=== PATIENT | female | born 1970 | race Caucasian/White ===

== ENCOUNTER 2020-04-10 11:58 | Outpatient (REF) | payer OTHER, SELFPAY ==
--- NOTE | 2020-04-10 12:11 | MM_ITS ---
EXAMINATION: MM DIAGNOSTIC DIGITAL TOMOSYNTHESIS, BILATERAL US BREAST, BILATERAL CLINICAL INFORMATION: Left breast lump. The lifetime risk of breast cancer based on the Tyrer-Cuzick Model is 7.5%. COMPARISON: Mammography: None TECHNIQUE: Digital breast tomosynthesis is performed in both the craniocaudal and mediolateral oblique views along with computer-aided detection (CAD). Synthesized 2D images are generated from the tomosynthesis. Additional spot compression views of the right breast in craniocaudal and mediolateral oblique projections performed. Bilateral targeted breast ultrasound. FINDINGS: The breasts are heterogeneously dense, which may obscure small masses (ACR BI-RADS breast composition category C). There is an asymmetric density seen within the deep superior right breast which may represent asymmetric breast parenchyma. Spot compression views demonstrate persistence of the density without calcifications. No mammographic abnormality is seen in region of palpable abnormality anterior left breast. No other abnormal dominant mass or grouping of suspicious calcifications identified. Ultrasound examination of the deep superior aspect of the right breast does not demonstrate any abnormal cystic or solid mass. No region of abnormal distal sound shadowing is seen. There is an island of what appears to be breast tissue in the deep superior aspect likely corresponding to asymmetric glandular tissue. Ultrasound examination of the palpable abnormality in the left breast demonstrates a 9 x 8 mm well-circumscribed hyperechoic structure containing an approximately 2 mm region which is hypoechoic in its center with this region demonstrating distal sound enhancement. No distal sound shadowing is appreciated. No internal vascularity is seen. This has the appearance of fat necrosis. Six-month followup left breast ultrasound is recommended for follow up. Results are discussed with the patient at time of visit. MM/MM tomosynthesis diagnostic BI IMPRESSION: Asymmetric focus of breast tissue within the deep superior aspect of the right breast. Probable region of fat necrosis corresponding to palpable abnormality of the left breast. Six-month followup ultrasound is recommended. ASSESSMENT: BI-RADS 3: Probably benign. RECOMMENDATION: Diagnostic left breast ultrasound in 6 months. This patient's information was entered into a reminder system with a target due date for their next mammogram.
== END 2020-04-10 11:59 | disposition home or self-care (01) ==
LOC: HO.MAMMO 11:58
PROVIDERS: PCP Nurse Practitioner Family; Visit Provider Nurse Practitioner Family
DX: N64.9 Disorder of breast, unspecified (principal)
CPT/HCPCS: 76642; 77062; 77066

== ENCOUNTER 2022-08-23 15:28 | Emergency (ER) | payer OTHER, SELFPAY ==
--- NOTE | ~2022-08-23 | XR_ITS ---
EXAMINATION: XR CHEST CLINICAL INFORMATION: EtOH, weakness COMPARISON: None available. TECHNIQUE: Frontal view of the chest was obtained. FINDINGS: The cardiomediastinal silhouette is within normal limits. The lungs are well expanded. There is no focal consolidation, edema, or effusion. No pneumothorax. No acute osseous abnormality. XR/XR chest 1V IMPRESSION: No evidence of acute pulmonary process.
[2022-08-23 15:51] VITALS: BP 138/93; PULSE 109; RESP 19; TEMP 36.6; O2SAT 97; BMI 19.1
--- NOTE | 2022-08-23 15:51 | ECG_ITS ---
Test Reason : DIZZYNESS Blood Pressure : / mmHG Vent. Rate : 107 BPM Atrial Rate : 107 BPM P-R Int : 162 ms QRS Dur : 082 ms QT Int : 348 ms P-R-T Axes : 070 064 065 degrees QTc Int : 464 ms Sinus tachycardia Cannot rule out Inferior infarct , age undetermined Anterior infarct , age undetermined Abnormal ECG No previous ECGs available Referred By: Kecia Vivar Electronically Signed By:MARYBEL DELGADILLO MD
--- NOTE | 2022-08-23 15:52 | ED_ITS ---
HPI - General Adult General Chief complaint: General Medical <CHANDLER Muniz - Last Filed: 08/23/22 15:58> Stated complaint: Dizziness <CHANDLER Muniz - Last Filed: 08/23/22 15:58> Time Seen by Provider: 08/23/22 16:43 <CHANDLER Muniz - Last Filed: 08/23/22 15:58> Source: patient <Bárbara Santoro NP - Last Filed: 08/24/22 00:16> Mode of arrival: ambulatory <Bárbara Santoro NP - Last Filed: 08/24/22 00:16> Limitations: no limitations <Bárbara Santoro NP - Last Filed: 08/24/22 00:16> History of Present Illness HPI narrative: 51-year-old female presents with nausea, vomiting, diarrhea for past 3 weeks, and has been drinking alcohol in excess for several years. Patient states that she stopped drinking alcohol because of the nausea and vomiting yesterday. Patient is interested in detox. <Bárbara Santoro NP - Last Filed: 08/24/22 00:16> Onset (ago): week(s) (3) <Bárbara Santoro NP - Last Filed: 08/24/22 00:16> Location: abdomen <Bárbara Santoro NP - Last Filed: 08/24/22 00:16> Radiation: non-radiation <Bárbara Santoro NP - Last Filed: 08/24/22 00:16> Severity: moderate <Bárbara Santoro NP - Last Filed: 08/24/22 00:16> Severity scale (1-10): 5 <Bárbara Santoro NP - Last Filed: 08/24/22 00:16> Quality: aching <Bárbara Santoro NP - Last Filed: 08/24/22 00:16> Pain Consistency: constant <Bárbara Santoro NP - Last Filed: 08/24/22 00:16> Relieving factors: none <Bárbara Santoro NP - Last Filed: 08/24/22 00:16> Exacerbating factors: none <Bárbara Santoro NP - Last Filed: 08/24/22 00:16> Associated symptoms: nausea/vomiting <Bárbara Santoro NP - Last Filed: 08/24/22 00:16> Related Data Home medications: Previous Rx's Medication Instructions Recorded trazodone 100 mg tablet 100 mg PO BEDTIME #30 tabs 06/11/20 dextroamphetamine-amphetamine 30 30 mg PO BID add 30 days #60 tabs 07/27/20 mg tablet (Adderall) <CHANDLER Muniz - Last Filed: 08/23/22 15:58> Allergies/adverse reactions: Allergies Allergy/AdvReac Type Severity Reaction Status Date / Time No Known Allergies Allergy Verified 08/23/22 15:51 <CHANDLER Muniz - Last Filed: 08/23/22 15:58> Review of Systems Review of Systems: Constitutional: No Fever, No Chills Cardiovascular: No Chest Pain, No SOB Respiratory: No Cough, No Dyspnea Gastrointestinal: Positive Nausea, positive Vomiting, positive Diarrhea, positi ve abdominal Pain Genitourinary: No Dysuria, No Hematuria Musculoskeletal: No joint pain, No Myalgias, No Joint Swelling Skin: No Skin lacerations, No rash Neuro: No Weakness, No Numbness, No Paresthesias, No Loss of Consciousness, No Dizziness, No Headache <Bárbara Santoro NP - Last Filed: 08/24/22 00:16> Yes all other systems are reviewed and are negative <Bárbara Santoro NP - Last Filed: 08/24/22 00:16> PMFSH Past Medical History Attestation statement: The following information was validated with the patient. <Bárbara Santoro NP - Last Filed: 08/24/22 00:16> Source: old records reviewed <Bárbara Santoro NP - Last Filed: 08/24/22 00:16> Medical History: Medical History ADD (attention deficit disorder) Anemia Migraine <CHANDLER Muniz - Last Filed: 08/23/22 15:58> Surgical History: Surgical History No pertinent past surgical history <CHANDLER Muniz - Last Filed: 08/23/22 15:58> Family History Family History: Family History Father Diabetes Stroke Mother Diabetes Cancer HTN (hypertension) <CHANDLER Muniz - Last Filed: 08/23/22 15:58> Social History Social History: Social History Alcohol intake: current Alcohol intake frequency: a few times a month Cigarettes Per Day: 10 Advance Directives: No Advance Directives Information Provided: No <CHANDLER Muniz - Last Filed: 08/23/22 15:58> Physical Exam ED Vital Signs: Vital Signs - 24 hr 08/23/22 15:51 08/23/22 20:32 Temperature 98 F 97.5 F Pulse Rate 109 H 90 Respiratory Rate 19 17 Blood Pressure 138/93 H 129/89 Pulse Oximetry 97 96 Oxygen Delivery Method Room Air Room Air BMI result Body Mass Index 19.1 <CHANDLER Muniz - Last Filed: 08/23/22 15:58> Vital Signs - 24 hr 08/23/22 15:51 08/23/22 20:32 Temperature 98 F 97.5 F Pulse Rate 109 H 90 Respiratory Rate 19 17 Blood Pressure 138/93 H 129/89 Pulse Oximetry 97 96 Oxygen Delivery Method Room Air Room Air BMI result Body Mass Index 19.1 <Bárbara Santoro NP - Last Filed: 08/24/22 00:16> Appearance: Alert. Oriented X3. No acute distress. Eyes: Pupils equal, round and reactive to light. ENT: Pharynx normal. Neck: Normal inspection. Neck supple. CVS: Normal heart rate and rhythm. Pulses normal. Respiratory: No respiratory distress. Breath sounds normal. Abdomen: Soft and nontender. No distention or rigidity. Skin: Skin warm and dry. Normal skin color. Normal skin turgor. Extremities: No lower extremity edema. Moves all extremities against resistance. Gait well-balanced well coordinated. Neuro: No motor deficit. No sensory deficit. Cranial nerves 2-12 intact. <Bárbara Santoro NP - Last Filed: 08/24/22 00:16> Course Course Course Narrative: This is an RME: Additional HPI, ROS, PE not included below will be deferred to primary provider. A 51-year-old female presents with nausea, vomiting, shakiness, fatigue, malaise, double vision, dizziness, headache (diffuse) disoriented ( however a&o X4), body aches and pains x2 days. Patient reports she is a current daily drinking last drink was last night. Typically drinks 10 nips of fireball a day. No hx of alcohol w/drawls. CIWA score of 9 PE w/ UE tremors, tachycardia, lungs clear. neuro nonfocal. NIHSS 0. Normal cerebellar function. Plan- labs, ethanol, viral test, ativan, CIWA Q4, orthostatic vitals I do not suspect stroke or posterior stroke <CHANDLER Muniz - Last Filed: 08/23/22 15:58> This is an RME: Additional HPI, ROS, PE not included below will be deferr ed to primary provider. A 51-year-old female presents with nausea, vomiting, shakiness, fatigue, malaise, double vision, dizziness, headache (diffuse) disoriented ( however a&o X4), body aches and pains x2 days. Patient reports she is a current daily drinking last drink was last night. Typically drinks 10 nips of fireball a day. No hx of alcohol w/drawls. CIWA score of 9 PE w/ UE tremors, tachycardia, lungs clear. neuro nonfocal. NIHSS 0. Normal cerebellar function. Plan- labs, ethanol, viral test, ativan, CIWA Q4, orthostatic vitals I do not suspect stroke or posterior stroke 51-year-old female presents for nausea, vomiting, diarrhea, abdominal pain, and would like alcohol detox. Patient states that she drinks at least 20 nips per day and has been doing so for the past several years. Patient's sister accompanies her at bedside. Patient appears to be hesitant to answer questions regarding her willingness to attend detox. Patient does not report suicidal or homicidal ideation. Does not report auditory or visual hallucinations. Will add additional values of lactic acid, magnesium, acetone. Patient's physical exam is unremarkable. Abdomen is soft nontender. Negative rebound or rigidity. No hepatosplenomegaly palpated. 17:40 lactic acid 3.2, most likely lactic acidosis from alcoholism. White count 7.1, gap 21, BUN 22. ETOH 269. IV fluids are still pending. RN updated. Patient is asking to smoke. Going to the restroom often. Patient does have a nicotine patch in place. 20:49 2nd ETOH 222, will have chief engineer drilling and recovery discussed options with this pa tient. It was noted that this patient had a sleeve of nips in her purse and was drinking in the bathroom of the emergency department. Patient states that she wants to leave against medical advice, chief engineer drilling and recovery was still working with her at this time, patient changed her story several times, told this PHARMACY RESOURCE TECH that she was trying to leave because her ride was outside, then stated in front of this PHARMACY RESOURCE TECH and a chief engineer drilling and recovery that she was just taking a walk. Multiple discussions with this patient, patient agrees the detox is the best for her, we will continue bed search. 22:00 patient smoking in the bathroom. Discharged against medical advice. <Bárbara Santoro PHARMACY RESOURCE TECH - Last Filed: 08/24/22 00:16> Medications Administered Discontinued Medications Generic Name Dose Route Start Last Admin Trade Name Freq PRN Reason Stop Dose Admin Lorazepam 2 mg 08/23/22 15:56 08/23/22 17:07 Lorazepam 1 Mg Tablet PO 08/23/22 15:57 2 mg ONCE ONE Administration Lorazepam 1 mg 08/23/22 16:56 08/23/22 17:08 Lorazepam 2 Mg/Ml Vial IVPUSH 08/23/22 16:57 1 mg STAT STA Administration Nicotine 21 mg 08/23/22 20:54 08/23/22 21:05 Nicotine 21 Mg Patch.Td24 TRANSDERMA 08/23/22 20:55 21 mg ONCE ONE Administration <Kecia Vivar PA - Last Filed: 08/23/22 15:58> Medications Administered Discontinued Medications Generic Name Dose Route Start Last Admin Trade Name Freq PRN Reason Stop Dose Admin Lorazepam 2 mg 08/23/22 15:56 08/23/22 17:07 Lorazepam 1 Mg Tablet PO 08/23/22 15:57 2 mg ONCE ONE Administration Lorazepam 1 mg 08/23/22 16:56 08/23/22 17:08 Lorazepam 2 Mg/Ml Vial IVPUSH 08/23/22 16:57 1 mg STAT STA Administration Nicotine 21 mg 08/23/22 20:54 08/23/22 21:05 Nicotine 21 Mg Patch.Td24 TRANSDERMA 08/23/22 20:55 21 mg ONCE ONE Administration <Bárbara Santoro NP - Last Filed: 08/24/22 00:16> Medical Decision Making Differential Diagnosis Differential Diagnoses: The differential diagnosis associated with the presentation includes <Bárbara Santoro NP - Last Filed: 08/24/22 00:16> Alcohol withdrawal, alcohol ketoacidosis, metabolic encephalopathy, viral gastroenteritis, pancreatitis <Bárbara Santoro NP - Last Filed: 08/24/22 00:16> Admission/Observation Consideration of admission/observation: Escalation of care including admission/observation considered <Bárbara Santoro NP - Last Filed: 08/24/22 00:16> If patient's lab values indicate pancreatitis or other acute findings will admit, will also consider admission for alcohol withdrawal <Bárbara Santoro NP - Last Filed: 08/24/22 00:16> Lab Data MDM Lab Attestation statement: I reviewed the patient's lab results. <Bárbara Santoro NP - Last Filed: 08/24/22 00:16> Result Diagrams: 08/23/22 16:11 08/23/22 16:11 <CHANDLER Muniz - Last Filed: 08/23/22 15:58> Labs: Lab Results 08/23/22 08/23/22 08/23/22 Range/Units 16:11 16:11 16:11 WBC 7.1 (4.8-10.8) X10*3/uL RBC 3.65 L (4.20-5.50) X10*6/uL Hgb 12.1 (12.0-16.0) g/dl Hct 34.3 L (37.0-47.0) % MCV 94.0 (80.0-98.0) fL MCH 33.2 H (27.0-33.0) pg MCHC 35.3 H (31.0-35.0) g/dl RDW 22.4 H (11.0-16.0) % Plt Count 277 (160-400) X10*3/uL MPV 9.0 L (9.4-12.3) fL Immature Gran % (Auto) 0.3 (0.0-0.4) % Neut % (Auto) 60.3 (45-73) % Lymph % (Auto) 31.7 (20-40) % [place] % (Auto) 4.9 (2-11) % Eos % (Auto) 1.0 (0-4) % Baso % (Auto) 1.8 (0-2) % Lymph # (Auto) 2.3 (1.2-4.9) X10*3/uL [place] # (Auto) 0.4 (0.1-1.2) X10*3/uL Eos # (Auto) 0.1 (0.0-0.4) X10*3/uL Baso # (Auto) 0.1 (0.0-0.2) X10*3/uL Abs Immat Gran (auto) 0.02 (0.00-0.03) X10*3/uL Absolute Neuts (auto) 4.3 (2.0-8.3) x10*3/uL Absolute Nucleated RBC 0.000 (0.0-0.012) X10*3/uL Nucleated RBC % (auto) 0.0 (0.0-0.2) /100WBC PT (10.0-13.1) SEC INR (0.9-1.1) APTT (26.0-36.4) SEC Sodium 143 (135-145) mmol/L Potassium 3.5 (3.3-5.1) mmol/L Chloride 104 (96-108) mmol/L Carbon Dioxide 22 (22-29) mmol/L Anion Gap 21 H (12-20) BUN 22 H (9-16) mg/dL Creatinine 0.78 (0.5-1.4) mg/dL Estim Creat Clear Calc 69.4 Estimated GFR > 60 Random Glucose 107 (60-115) mg/dL Lactic Acid (0.5-2.0) mmol/L Lactic Acid F/U @ 2Hr (0.5-2.0) mmol/L Calcium 8.9 (8.4-10.2) mg/dL Phosphorus (2.7-4.5) mg/dL Magnesium 1.9 (1.6-2.6) mg/dL Total Bilirubin 1.4 H (0.0-1.0) mg/dL AST 67 H (5-31) U/L ALT 34 H (0-31) U/L Alkaline Phosphatase 110 (39-117) U/L Troponin I High Sens (<3.5-17.0) ng/L Total Protein 6.9 (6.5-8.0) g/dL Albumin 4.1 (3.5-5.0) g/dL Lipase 23 (8-78) U/L Ethyl Alcohol 269 mg/dL Acetone, Qual (Negative) COVID-19 (PETE) (Negative) COVID-19 Clin Com Influenza Type A (PARIS) Negative (Negative) Influenza Type B (PARIS) Negative (Negative) Influenza A & B Note See Note 08/23/22 08/23/22 08/23/22 Range/Units 16:11 17:17 17:17 WBC (4.8-10.8) X10*3/uL RBC (4.20-5.50) X10*6/uL Hgb (12.0-16.0) g/dl Hct (37.0-47.0) % MCV (80.0-98.0) fL MCH (27.0-33.0) pg MCHC (31.0-35.0) g/dl RDW (11.0-16.0) % Plt Count (160-400) X10*3/uL MPV (9.4-12.3) fL Immature Gran % (Auto) (0.0-0.4) % Neut % (Auto) (45-73) % Lymph % (Auto) (20-40) % [place] % (Auto) (2-11) % Eos % (Auto) (0-4) % Baso % (Auto) (0-2) % Lymph # (Auto) (1.2-4.9) X10*3/uL [place] # (Auto) (0.1-1.2) X10*3/uL Eos # (Auto) (0.0-0.4) X10*3/uL Baso # (Auto) (0.0-0.2) X10*3/uL Abs Immat Gran (auto) (0.00-0.03) X10*3/uL Absolute Neuts (auto) (2.0-8.3) x10*3/uL Absolute Nucleated RBC (0.0-0.012) X10*3/uL Nucleated RBC % (auto) (0.0-0.2) /100WBC PT (10.0-13.1) SEC INR (0.9-1.1) APTT 27.2 (26.0-36.4) SEC Sodium (135-145) mmol/L Potassium (3.3-5.1) mmol/L Chloride (96-108) mmol/L Carbon Dioxide (22-29) mmol/L Anion Gap (12-20) BUN (9-16) mg/dL Creatinine (0.5-1.4) mg/dL Estim Creat Clear Calc Estimated GFR Random Glucose (60-115) mg/dL Lactic Acid 3.2 H* (0.5-2.0) mmol/L Lactic Acid F/U @ 2Hr (0.5-2.0) mmol/L Calcium (8.4-10.2) mg/dL Phosphorus (2.7-4.5) mg/dL Magnesium (1.6-2.6) mg/dL Total Bilirubin (0.0-1.0) mg/dL AST (5-31) U/L ALT (0-31) U/L Alkaline Phosphatase (39-117) U/L Troponin I High Sens (<3.5-17.0) ng/L Total Protein (6.5-8.0) g/dL Albumin (3.5-5.0) g/dL Lipase (8-78) U/L Ethyl Alcohol mg/dL Acetone, Qual (Negative) COVID-19 (PETE) Negative (Negative) COVID-19 Clin Com See Note Influenza Type A (PARIS) (Negative) Influenza Type B (PARIS) (Negative) Influenza A & B Note 08/23/22 08/23/22 08/23/22 Range/Units 17:17 17:17 17:17 WBC (4.8-10.8) X10*3/uL RBC (4.20-5.50) X10*6/uL Hgb (12.0-16.0) g/dl Hct (37.0-47.0) % MCV (80.0-98.0) fL MCH (27.0-33.0) pg MCHC (31.0-35.0) g/dl RDW (11.0-16.0) % Plt Count (160-400) X10*3/uL MPV (9.4-12.3) fL Immature Gran % (Auto) (0.0-0.4) % Neut % (Auto) (45-73) % Lymph % (Auto) (20-40) % [place] % (Auto) (2-11) % Eos % (Auto) (0-4) % Baso % (Auto) (0-2) % Lymph # (Auto) (1.2-4.9) X10*3/uL [place] # (Auto) (0.1-1.2) X10*3/uL Eos # (Auto) (0.0-0.4) X10*3/uL Baso # (Auto) (0.0-0.2) X10*3/uL Abs Immat Gran (auto) (0.00-0.03) X10*3/uL Absolute Neuts (auto) (2.0-8.3) x10*3/uL Absolute Nucleated RBC (0.0-0.012) X10*3/uL Nucleated RBC % (auto) (0.0-0.2) /100WBC PT 13.8 H (10.0-13.1) SEC INR 1.2 H (0.9-1.1) APTT (26.0-36.4) SEC Sodium (135-145) mmol/L Potassium (3.3-5.1) mmol/L Chloride (96-108) mmol/L Carbon Dioxide (22-29) mmol/L Anion Gap (12-20) BUN (9-16) mg/dL Creatinine (0.5-1.4) mg/dL Estim Creat Clear Calc Estimated GFR Random Glucose (60-115) mg/dL Lactic Acid (0.5-2.0) mmol/L Lactic Acid F/U @ 2Hr (0.5-2.0) mmol/L Calcium (8.4-10.2) mg/dL Phosphorus 4.3 (2.7-4.5) mg/dL Magnesium 1.8 (1.6-2.6) mg/dL Total Bilirubin (0.0-1.0) mg/dL AST (5-31) U/L ALT (0-31) U/L Alkaline Phosphatase (39-117) U/L Troponin I High Sens < 3.5 (<3.5-17.0) ng/L Total Protein (6.5-8.0) g/dL Albumin (3.5-5.0) g/dL Lipase (8-78) U/L Ethyl Alcohol mg/dL Acetone, Qual Negative (Negative) COVID-19 (PETE) (Negative) COVID-19 Clin Com Influenza Type A (PARIS) (Negative) Influenza Type B (PARIS) (Negative) Influenza A & B Note 08/23/22 08/23/22 Range/Units 20:11 20:11 WBC (4.8-10.8) X10*3/uL RBC (4.20-5.50) X10*6/uL Hgb (12.0-16.0) g/dl Hct (37.0-47.0) % MCV (80.0-98.0) fL MCH (27.0-33.0) pg MCHC (31.0-35.0) g/dl RDW (11.0-16.0) % Plt Count (160-400) X10*3/uL MPV (9.4-12.3) fL Immature Gran % (Auto) (0.0-0.4) % Neut % (Auto) (45-73) % Lymph % (Auto) (20-40) % [place] % (Auto) (2-11) % Eos % (Auto) (0-4) % Baso % (Auto) (0-2) % Lymph # (Auto) (1.2-4.9) X10*3/uL [place] # (Auto) (0.1-1.2) X10*3/uL Eos # (Auto) (0.0-0.4) X10*3/uL Baso # (Auto) (0.0-0.2) X10*3/uL Abs Immat Gran (auto) (0.00-0.03) X10*3/uL Absolute Neuts (auto) (2.0-8.3) x10*3/uL Absolute Nucleated RBC (0.0-0.012) X10*3/uL Nucleated RBC % (auto) (0.0-0.2) /100WBC PT (10.0-13.1) SEC INR (0.9-1.1) APTT (26.0-36.4) SEC Sodium (135-145) mmol/L Potassium (3.3-5.1) mmol/L Chloride (96-108) mmol/L Carbon Dioxide (22-29) mmol/L Anion Gap (12-20) BUN (9-16) mg/dL Creatinine (0.5-1.4) mg/dL Estim Creat Clear Calc Estimated GFR Random Glucose (60-115) mg/dL Lactic Acid (0.5-2.0) mmol/L Lactic Acid F/U @ 2Hr 3.5 H* (0.5-2.0) mmol/L Calcium (8.4-10.2) mg/dL Phosphorus (2.7-4.5) mg/dL Magnesium (1.6-2.6) mg/dL Total Bilirubin (0.0-1.0) mg/dL AST (5-31) U/L ALT (0-31) U/L Alkaline Phosphatase (39-117) U/L Troponin I High Sens (<3.5-17.0) ng/L Total Protein (6.5-8.0) g/dL Albumin (3.5-5.0) g/dL Lipase (8-78) U/L Ethyl Alcohol 222 mg/dL Acetone, Qual (Negative) COVID-19 (PETE) (Negative) COVID-19 Clin Com Influenza Type A (PARIS) (Negative) Influenza Type B (PARIS) (Negative) Influenza A & B Note <CHANDLER Muniz - Last Filed: 08/23/22 15:58> Lab Results 08/23/22 08/23/22 08/23/22 Range/Units 16:11 16:11 16:11 WBC 7.1 (4.8-10.8) X10*3/uL RBC 3.65 L (4.20-5.50) X10*6/uL Hgb 12.1 (12.0-16.0) g/dl Hct 34.3 L (37.0-47.0) % MCV 94.0 (80.0-98.0) fL MCH 33.2 H (27.0-33.0) pg MCHC 35.3 H (31.0-35.0) g/dl RDW 22.4 H (11.0-16.0) % Plt Count 277 (160-400) X10*3/uL MPV 9.0 L (9.4-12.3) fL Immature Gran % (Auto) 0.3 (0.0-0.4) % Neut % (Auto) 60.3 (45-73) % Lymph % (Auto) 31.7 (20-40) % [place] % (Auto) 4.9 (2-11) % Eos % (Auto) 1.0 (0-4) % Baso % (Auto) 1.8 (0-2) % Lymph # (Auto) 2.3 (1.2-4.9) X10*3/uL [place] # (Auto) 0.4 (0.1-1.2) X10*3/uL Eos # (Auto) 0.1 (0.0-0.4) X10*3/uL Baso # (Auto) 0.1 (0.0-0.2) X10*3/uL Abs Immat Gran (auto) 0.02 (0.00-0.03) X10*3/uL Absolute Neuts (auto) 4.3 (2.0-8.3) x10*3/uL Absolute Nucleated RBC 0.000 (0.0-0.012) X10*3/uL Nucleated RBC % (auto) 0.0 (0.0-0.2) /100WBC PT (10.0-13.1) SEC INR (0.9-1.1) APTT (26.0-36.4) SEC Sodium 143 (135-145) mmol/L Potassium 3.5 (3.3-5.1) mmol/L Chloride 104 (96-108) mmol/L Carbon Dioxide 22 (22-29) mmol/L Anion Gap 21 H (12-20) BUN 22 H (9-16) mg/dL Creatinine 0.78 (0.5-1.4) mg/dL Estim Creat Clear Calc 69.4 Estimated GFR > 60 Random Glucose 107 (60-115) mg/dL Lactic Acid (0.5-2.0) mmol/L Lactic Acid F/U @ 2Hr (0.5-2.0) mmol/L Calcium 8.9 (8.4-10.2) mg/dL Phosphorus (2.7-4.5) mg/dL Magnesium 1.9 (1.6-2.6) mg/dL Total Bilirubin 1.4 H (0.0-1.0) mg/dL AST 67 H (5-31) U/L ALT 34 H (0-31) U/L Alkaline Phosphatase 110 (39-117) U/L Troponin I High Sens (<3.5-17.0) ng/L Total Protein 6.9 (6.5-8.0) g/dL Albumin 4.1 (3.5-5.0) g/dL Lipase 23 (8-78) U/L Ethyl Alcohol 269 mg/dL Acetone, Qual (Negative) COVID-19 (PETE) (Negative) COVID-19 Clin Com Influenza Type A (PARIS) Negative (Negative) Influenza Type B (PARIS) Negative (Negative) Influenza A & B Note See Note 08/23/22 08/23/22 08/23/22 Range/Units 16:11 17:17 17:17 WBC (4.8-10.8) X10*3/uL RBC (4.20-5.50) X10*6/uL Hgb (12.0-16.0) g/dl Hct (37.0-47.0) % MCV (80.0-98.0) fL MCH (27.0-33.0) pg MCHC (31.0-35.0) g/dl RDW (11.0-16.0) % Plt Count (160-400) X10*3/uL MPV (9.4-12.3) fL Immature Gran % (Auto) (0.0-0.4) % Neut % (Auto) (45-73) % Lymph % (Auto) (20-40) % [place] % (Auto) (2-11) % Eos % (Auto) (0-4) % Baso % (Auto) (0-2) % Lymph # (Auto) (1.2-4.9) X10*3/uL [place] # (Auto) (0.1-1.2) X10*3/uL Eos # (Auto) (0.0-0.4) X10*3/uL Baso # (Auto) (0.0-0.2) X10*3/uL Abs Immat Gran (auto) (0.00-0.03) X10*3/uL Absolute Neuts (auto) (2.0-8.3) x10*3/uL Absolute Nucleated RBC (0.0-0.012) X10*3/uL Nucleated RBC % (auto) (0.0-0.2) /100WBC PT (10.0-13.1) SEC INR (0.9-1.1) APTT 27.2 (26.0-36.4) SEC Sodium (135-145) mmol/L Potassium (3.3-5.1) mmol/L Chloride (96-108) mmol/L Carbon Dioxide (22-29) mmol/L Anion Gap (12-20) BUN (9-16) mg/dL Creatinine (0.5-1.4) mg/dL Estim Creat Clear Calc Estimated GFR Random Glucose (60-115) mg/dL Lactic Acid 3.2 H* (0.5-2.0) mmol/L Lactic Acid F/U @ 2Hr (0.5-2.0) mmol/L Calcium (8.4-10.2) mg/dL Phosphorus (2.7-4.5) mg/dL Magnesium (1.6-2.6) mg/dL Total Bilirubin (0.0-1.0) mg/dL AST (5-31) U/L ALT (0-31) U/L Alkaline Phosphatase (39-117) U/L Troponin I High Sens (<3.5-17.0) ng/L Total Protein (6.5-8.0) g/dL Albumin (3.5-5.0) g/dL Lipase (8-78) U/L Ethyl Alcohol mg/dL Acetone, Qual (Negative) COVID-19 (PETE) Negative (Negative) COVID-19 Clin Com See Note Influenza Type A (PARIS) (Negative) Influenza Type B (PARIS) (Negative) Influenza A & B Note 08/23/22 08/23/22 08/23/22 Range/Units 17:17 17:17 17:17 WBC (4.8-10.8) X10*3/uL RBC (4.20-5.50) X10*6/uL Hgb (12.0-16.0) g/dl Hct (37.0-47.0) % MCV (80.0-98.0) fL MCH (27.0-33.0) pg MCHC (31.0-35.0) g/dl RDW (11.0-16.0) % Plt Count (160-400) X10*3/uL MPV (9.4-12.3) fL Immature Gran % (Auto) (0.0-0.4) % Neut % (Auto) (45-73) % Lymph % (Auto) (20-40) % [place] % (Auto) (2-11) % Eos % (Auto) (0-4) % Baso % (Auto) (0-2) % Lymph # (Auto) (1.2-4.9) X10*3/uL [place] # (Auto) (0.1-1.2) X10*3/uL Eos # (Auto) (0.0-0.4) X10*3/uL Baso # (Auto) (0.0-0.2) X10*3/uL Abs Immat Gran (auto) (0.00-0.03) X10*3/uL Absolute Neuts (auto) (2.0-8.3) x10*3/uL Absolute Nucleated RBC (0.0-0.012) X10*3/uL Nucleated RBC % (auto) (0.0-0.2) /100WBC PT 13.8 H (10.0-13.1) SEC INR 1.2 H (0.9-1.1) APTT (26.0-36.4) SEC Sodium (135-145) mmol/L Potassium (3.3-5.1) mmol/L Chloride (96-108) mmol/L Carbon Dioxide (22-29) mmol/L Anion Gap (12-20) BUN (9-16) mg/dL Creatinine (0.5-1.4) mg/dL Estim Creat Clear Calc Estimated GFR Random Glucose (60-115) mg/dL Lactic Acid (0.5-2.0) mmol/L Lactic Acid F/U @ 2Hr (0.5-2.0) mmol/L Calcium (8.4-10.2) mg/dL Phosphorus 4.3 (2.7-4.5) mg/dL Magnesium 1.8 (1.6-2.6) mg/dL Total Bilirubin (0.0-1.0) mg/dL AST (5-31) U/L ALT (0-31) U/L Alkaline Phosphatase (39-117) U/L Troponin I High Sens < 3.5 (<3.5-17.0) ng/L Total Protein (6.5-8.0) g/dL Albumin (3.5-5.0) g/dL Lipase (8-78) U/L Ethyl Alcohol mg/dL Acetone, Qual Negative (Negative) COVID-19 (PETE) (Negative) COVID-19 Clin Com Influenza Type A (PARIS) (Negative) Influenza Type B (PARIS) (Negative) Influenza A & B Note 08/23/22 08/23/22 Range/Units 20:11 20:11 WBC (4.8-10.8) X10*3/uL RBC (4.20-5.50) X10*6/uL Hgb (12.0-16.0) g/dl Hct (37.0-47.0) % MCV (80.0-98.0) fL MCH (27.0-33.0) pg MCHC (31.0-35.0) g/dl RDW (11.0-16.0) % Plt Count (160-400) X10*3/uL MPV (9.4-12.3) fL Immature Gran % (Auto) (0.0-0.4) % Neut % (Auto) (45-73) % Lymph % (Auto) (20-40) % [place] % (Auto) (2-11) % Eos % (Auto) (0-4) % Baso % (Auto) (0-2) % Lymph # (Auto) (1.2-4.9) X10*3/uL [place] # (Auto) (0.1-1.2) X10*3/uL Eos # (Auto) (0.0-0.4) X10*3/uL Baso # (Auto) (0.0-0.2) X10*3/uL Abs Immat Gran (auto) (0.00-0.03) X10*3/uL Absolute Neuts (auto) (2.0-8.3) x10*3/uL Absolute Nucleated RBC (0.0-0.012) X10*3/uL Nucleated RBC % (auto) (0.0-0.2) /100WBC PT (10.0-13.1) SEC INR (0.9-1.1) APTT (26.0-36.4) SEC Sodium (135-145) mmol/L Potassium (3.3-5.1) mmol/L Chloride (96-108) mmol/L Carbon Dioxide (22-29) mmol/L Anion Gap (12-20) BUN (9-16) mg/dL Creatinine (0.5-1.4) mg/dL Estim Creat Clear Calc Estimated GFR Random Glucose (60-115) mg/dL Lactic Acid (0.5-2.0) mmol/L Lactic Acid F/U @ 2Hr 3.5 H* (0.5-2.0) mmol/L Calcium (8.4-10.2) mg/dL Phosphorus (2.7-4.5) mg/dL Magnesium (1.6-2.6) mg/dL Total Bilirubin (0.0-1.0) mg/dL AST (5-31) U/L ALT (0-31) U/L Alkaline Phosphatase (39-117) U/L Troponin I High Sens (<3.5-17.0) ng/L Total Protein (6.5-8.0) g/dL Albumin (3.5-5.0) g/dL Lipase (8-78) U/L Ethyl Alcohol 222 mg/dL Acetone, Qual (Negative) COVID-19 (PETE) (Negative) COVID-19 Clin Com Influenza Type A (PARIS) (Negative) Influenza Type B (PARIS) (Negative) Influenza A & B Note <Bárbara Santoro NP - Last Filed: 08/24/22 00:16> Independent Interpretation I performed an independent interpretation of an: EKG and Plain X-Ray <Bárbara Santoro NP - Last Filed: 08/24/22 00:16> Interpretation: Sinus tachycardia Cannot rule out Inferior infarct , age undetermined Ante rior infarct , age undetermined Abnormal ECG No previous ECGs available Vent. rate 107 BPM NC interval 162 ms QRS duration 82 ms QT/QTc 348/464 ms P-R-T axes 70 64 65 23-AUG-2022 16:01:45 <Bárbara Santoro NP - Last Filed: 08/24/22 00:16> Radiology Impression Discussion of test interpretation with radiology: I have reviewed the radiologist's reading. <Bárbara Santoro NP - Last Filed: 08/24/22 00:16> Radiologist Impression: EXAMINATION: XR CHEST CLINICAL INFORMATION: EtOH, weakness COMPARISON: None available. TECHNIQUE: Frontal view of the chest was obtained. FINDINGS: The cardiomediastinal silhouette is within normal limits. The lungs are well expanded. There is no focal consolidation, edema, or effusion. No pneumothorax. No acute osseous abnormality. XR/XR chest 1V IMPRESSION: No evidence of acute pulmonary process. <Bárbara Santoro NP - Last Filed: 0 08/24/22 00:16> Independent Historian Clinical information obtained from an independent historian. History obtained from or confirmed by: Other (Sister) <Bárbara Santoro NP - Last Filed: 08/24/22 00:16> External Record Review External record reviewed: Outpatient record <Bárbara Santoro NP - Last Filed: 08/24/22 00:16> No significant prior records for this patient at this facility <Bárbara Santoro NP - Last Filed: 08/24/22 00:16> Discharge Plan Discharge Clinical Impression: Alcoholism, Acidosis, lactic <CHANDLER Muniz - Last Filed: 08/23/22 15:58> Patient Disposition: Left Against Medical Advice <CHANDLER Muniz - Last Filed: 08/23/22 15:58> Instructions: Abuse of Alcohol (ED) <CHANDLER Muniz - Last Filed: 08/23/22 15:58> Additional Instructions: You were evaluated for nausea vomiting and abdominal pain with alcoholism. Your lactic acid is elevated due to your alcoholism. Please follow-up with detox. You are leaving against medical advice. You more than welcome to return at any time to complete your care. <CHANDLER Muniz - Last Filed: 08/23/22 15:58> Prescriptions: No Action trazodone 100 mg tablet 100 mg PO BEDTIME Qty: 30 3RF dextroamphetamine-amphetamine [Adderall] 30 mg tablet 30 mg PO BID 30 Days Qty: 60 0RF Rx Instructions: 1 tab in the am, .5 tab in afternoon <CHANDLER Muniz - Last Filed: 08/23/22 15:58> Stand Alone Forms: Against Medical Advice <CHANDLER Muniz - Last Filed: 08/23/22 15:58>
[2022-08-23 16:17] LABS: MANUAL DIFF FLAG NO
--- OUTSIDE RECORDS SUMMARY | 2022-08-23 16:23 | XMS_ITS | Continuity of Care Document ---
:1970 Author Organization [facility] Address [address] [place] [address]- Care Team Providers Name Role Phone Robi Cardona MD Primary Care Physician Encounter [facility] Date(s): 06/27/22 - 07/27/22 [facility] [address] [id number]- Attending Physician: Rosy Jaramillo Admitting Physician: Rosy Jaramillo Referring Physician: trRosy Allergies, Adverse Reactions, Alerts Substance Reaction Severity Status penicillin Active Medications MoviPrep oral powder for reconstitution 240 mL, By Mouth, Every 15 minutes, Dose #1 evening before colonoscopy and dose #2 is 6 hours beforecolonoscopy, # 1 each, 0 Refills, Maintenance, 05/01/22 17:00:00 EST, REC Powder, [facility]/pharmacy #[id number], test date 05/02/22, 240 mL By Mouth Every 15 min... Start Date: 05/01/22 Status: OrderedtraZODone 100 mg oral tablet 100 mg, 1, tablet, By Mouth, Daily at bedtime, # 30 tablet, Refills 1, Tot. Refills 1, Maintenance, 01/21/22 12:47:00 EDT, Route to Pharmacy Electronically, [facility]/pharmacy #[id number], Partial fill upon patient request if the prescription is for a schedule II... Start Date: 01/21/22 Stop Date: 03/22/22 Status: Ordered Problem List Condition Confirmation Course Effective Dates Status Health Stat us Informant GERD Confirmed Active (gastroesophageal reflux disease) MANJINDER (generalized Confirmed Active anxiety disorder) Insomnia Confirmed Active Colon cancer Confirmed Active screening Social History Social History Type Response Smoking Status 10 or more cigarettes (1/2 p ack or more)/day in last 30 days; Patient wants NRT during admission Yes; Other: 10 CIGARETTES A DAY; Started at age: 14; entered on: 12/23/21 Sex Patient Care team information Care Team PersonnelName: Robi Cardona MD Position: [facility] Primary Care Physician Member Role: PCP Address: Address: [address] [place] [address]- Care Team Related PersonsName: MAXIMILIANO CHRISTINE Address: home [address] [place] [id number] Name: SUBHASH CASANOVA
--- OUTSIDE RECORDS SUMMARY | 2022-08-23 16:23 | XMS_ITS | Continuity of Care Document ---
:1970 Author Organization [facility] Address [address] [place] [address]- Care Team Providers Name Role Phone Robi Cardona MD Primary Care Physician [facility] [facility] Date(s): 01/20/22 - 02/26/[address] [id number] Attending Physician: Robi Cardona MD Admitting Physician: Robi Cardona MD Referring Physician: Robi Cardona MD Allergies, Adverse Reactions, Alerts Substance Reaction Severity Status penicillin Active Medications MoviPrep oral powder for reconstitution 240 mL, By Mouth, Every 15 minutes, Dose #1 evening before colonoscopy and dose #2 is 6 hours beforecolonoscopy, # 1 each, 0 Refills, Maintenance, 05/01/22 17:00:00 EST, REC Powder, [facility]/pharmacy #[id number], test date 05/02/22, 240 mL By Mouth Every 15 min... Start Date: 05/01/22 Status: OrderedtraZODone 100 mg oral tablet 100 mg, 1, tablet, By Mouth, Daily at bedtime, # 30 tablet, Refills 1, Tot. Refills 1, Maintenance, 01/21/22 12:47:00 EDT, Route to Pharmacy Electronically, [facility]/pharmacy #[id number], Partial fill upon patient request if the prescription is for a schedule II... Start Date: 01/21/22 Stop Date: 03/22/22 Status: Ordered Problem List Condition Effective Dates Status Health Status Informant GERD (gastroesophageal reflux Active disease)(Confirmed) MANJINDER (generalized anxiety Active disorder)(Confirmed) Insomnia(Confirmed) Active Colon cancer screening(Confirmed) Active Social History Social History Type Response Smoking Status 10 or more cigarettes (1/2 p ack or more)/day in last 30 days; Patient wants NRT during admission Yes; Other: 10 CIGARETTES A DAY; Started at age: 14; entered on: 12/23/21 Sex Care Team PersonnelName: Robi Cardona MD Address: [address] [place] [address], [place], [place] [address]
--- OUTSIDE RECORDS SUMMARY | 2022-08-23 16:23 | XMS_ITS | Continuity of Care Document ---
:1970 Author Organization [facility] Address [address] [place] [address]- Care Team Providers Name Role Phone Robi Cardona MD Primary Care Physician Encounter [facility] Date(s): 01/24/22 - 02/23/22 [facility] [address] [place] [address]- [place] Allergies, Adverse Reactions, Alerts Substance Reaction Severity Status penicillin Active Medications MoviPrep oral powder for reconstitution 240 mL, By Mouth, Every 15 minutes, Dose #1 evening before colonoscopy and dose #2 is 6 hours beforecolonoscopy, # 1 each, 0 Refills, Maintenance, 05/01/22 17:00:00 EST, REC Powder, [facility]/pharmacy #[id number], test date 05/02/22, 240 mL By Mouth Every 15 min... Start Date: 05/01/22 Status: OrderedtraZODone 100 mg oral tablet 100 mg, 1, tablet, By Mouth, Daily at bedtime, # 30 tablet, Refills 1, Tot. Refills 1, Maintenance, 01/21/22 12:47:00 EDT, Route to Pharmacy Electronically, [facility]/pharmacy #[id number], Partial fill upon patient request if [...] Care Team PersonnelName: Robi Cardona MD Address: [address] [facility] [place] [address]- [place]
--- OUTSIDE RECORDS SUMMARY | 2022-08-23 16:23 | XMS_ITS | Continuity of Care Document ---
:1970 Author Organization [facility] Address [address] [place] [address]- Care Team Providers Name Role Phone Robi Cardona MD Primary Care Physician Encounter [facility] Date(s): 06/27/22 - 07/27/22 [facility] [address] [place] [address]- [place] Allergies, Adverse Reactions, Alerts Substance Reaction Severity Status penicillin Active Medications MoviPrep oral powder for reconstitution 240 mL, By Mouth, Every 15 minutes, Dose #1 evening before colonoscopy and dose #2 is 6 hours beforecolonoscopy, # 1 each, 0 Refills, Maintenance, 05/01/22 17:00:00 EST, REC Powder, [facility]/pharmacy #[id number], test date 05/02/22, 240 mL By Mouth Every 15 min... Start Date: 05/01/22 Status: OrderedtraZODone 100 mg oral tablet 100 mg, 1, tablet, By Mouth, Daily at bedtime, # 30 tablet, Refills 1, Tot. Refills 1, Maintenance, 01/21/22 12:47:00 EDT, Route to Pharmacy Electronically, [facility]/pharmacy #[id number], Partial fill upon patient request if [...] Care Team PersonnelName: Robi Cardona MD Position: [facility] Primary Care Physician Member Role: PCP Address: Address: [address] [place] [address] Medicine, [place] [address]- Care Team Related PersonsName: MAXIMILIANO CHRISTINE Address: home [address] [place] [address] Name: SUBHASH CASANOVA
--- OUTSIDE RECORDS SUMMARY | 2022-08-23 16:23 | XMS_ITS | Continuity of Care Document ---
:1970 Author Organization [facility] Address [address] [phone]- Care Team Providers Name Role Phone Robi Cardona MD Primary Care Physician Encounter [facility] Date(s): 05/16/22 - 07/27/22 [facility] [address] [place] [address]- Attending Physician: Robi Cardona MD Allergies, Adverse Reactions, [...] 01/21/22 12:47:00 EDT, Route to Pharmacy Electronically, [facility]/pharmacy #[id number], Partial fill upon patient request if [...] Care Team PersonnelName: Robi Cardona MD Position: [facility] Primary Care Physician Member Role: PCP Address: Address: [address] [facility], [place] [address]- Care Team Related PersonsName: MAXIMILIANO CHRISTINE Address: home [address] [place] [address] Name: SUBHASH CASANOVA
--- OUTSIDE RECORDS SUMMARY | 2022-08-23 16:23 | XMS_ITS | Continuity of Care Document ---
:1970 Author Organization [facility] Address [address] [place] [address]- Care Team Providers Name Role Phone Robi Cardona MD Primary Care Physician Encounter [facility] Date(s): 01/20/22 - 02/19/22 [facility] [address] [place] [address]- [place] Allergies, Adverse Reactions, Alerts Substance Reaction Severity Status penicillin Active Medications MoviPrep oral powder for reconstitution 240 mL, By Mouth, Every 15 minutes, Dose #1 evening before colonoscopy and dose #2 is 6 hours beforecolonoscopy, # 1 each, 0 Refills, Maintenance, 05/01/22 17:00:00 EST, REC Powder, [facility]/pharmacy #[id number], test date 05/02/22, 240 mL By Mouth Every 15 min... Start Date: 05/01/22 Status: OrderedtraZODone 100 mg oral tablet 100 mg, 1, tablet, By Mouth, Daily at bedtime, # 30 tablet, Refills 1, Tot. Refills 1, Maintenance, 01/21/22 12:47:00 EDT, Route to Pharmacy Electronically, [facility]/pharmacy #[id number], Partial fill upon patient request [...] Care Team PersonnelName: Robi Cardona MD Address: [address] [place] [address], [place], [place] [address]
--- OUTSIDE RECORDS SUMMARY | 2022-08-23 16:23 | XMS_ITS | Continuity of Care Document ---
:1970 Author Organization [facility] Address [address] [place] [address]- Care Team Providers Name Role Phone Robi Cardona MD Primary Care Physician [id number] Date(s): 12/23/21 - 12/30/21 [facility] [address] [place] [address]- Encounter Diagnosis GERD (gastroesophageal reflux disease) (Discharge Diagnosis) - 12/23/21 Colon cancer screening (Discharge Diagnosis) - 12/23/21 MANJINDER (generalized anxiety disorder) (Discharge Diagnosis) - 12/23/21 Insomnia (Discharge Diagnosis) - 12/23/21 Attending Physician: Robi Cardona MD Allergies, Adverse Reactions, Alerts Substance Reaction Severity Status penicillin Active Medications traZODone 50 mg oral tablet 50 mg, 1, tablet, By Mouth, Daily at bedtime, # 22.5 each, Refills 3, Tot. Refills 3, Maintenance, 12/23/21 16:36:00 EDT, Route to Pharmacy Electronically, [facility]/pharmacy #[id number], Partial fill upon patientrequest if the prescription is for a schedule II... Start Date: 12/23/21 Stop Date: 04/22/22 Status: Ordered Problem List Condition Effective Dates Status Health Status Informant GERD (gastroesophageal reflux Active disease)(Confirmed) MANJINDER (generalized anxiety Active disorder)(Confirmed) Insomnia(Confirmed) Active Colon cancer screening(Confirmed) Active Diagnosis Diagnosis Type Effective Dates Health Status Clinical In formant Service GERD Discharge 12/23/21 (gastroesophagea Diagnosis l reflux disease) Colon cancer Discharge 12/23/21 screening Diagnosis MANJINDER (generalized Discharge 12/23/21 anxiety Diagnosis disorder) Insomnia Discharge 12/23/21 Diagnosis Vital Signs Most recent to oldest [Reference Range]: 1 Height 165 cm (12/23/21 3:53 PM) Weight 57.9 kg (12/23/21 3:53 PM) Oxygen Saturation [94-100 %] 98 % (12/23/21 3:53 PM) Pulse Rate [55-90 bpm] 91 bpm *H* (12/23/21 3:53 PM) Body Mass Index [18.5-24.99] 21.27 (12/23/21 3:53 PM) Blood Pressure [90-138/55-84 mm Hg] 130/80 mm Hg (12/23/21 3:53 PM) Liters per Minute 0 L/min (12/23/21 3:53 PM) Mode of Delivery (Oxygen) Room air (12/23/21 3:53 PM) Blood pressure sites Arm, left (12/23/21 3:53 PM) Weight Obtained Via Standing scale (12/23/21 3:53 PM) Social History Social History Type Response Smoking Status 10 or more cigarettes (1/2 p ack or more)/day in last 30 days; Patient wants NRT during admission Yes; Other: 10 CIGARETTES A DAY; Started at age: 14; entered on: 12/23/21 Sex
--- OUTSIDE RECORDS SUMMARY | 2022-08-23 16:23 | XMS_ITS | Continuity of Care Document ---
:1970 Author Organization [facility] Address [address] [place] [address]- Care Team Providers Name Role Phone Robi Cardona MD Primary Care Physician Encounter [facility] [id number] Date(s): 02/18/22 - 06/18/22 [facility] [address] [place], [place] [id number]- Attending Physician: Robi Cardona MD Allergies, Adverse Reactions, Alerts Substance Reaction Severity Status penicillin Active Medications MoviPrep oral powder for reconstitution 240 mL, By Mouth, Every 15 minutes, Dose #1 evening before colonoscopy and dose #2 is 6 hours beforecolonoscopy, # 1 each, 0 Refills, Maintenance, 05/01/22 17:00:00 EST, REC Powder, [facility]/pharmacy #[id number], test date 05/02/22, 240 mL By Mouth Every 15 min... Start Date: 05/01/22 Status: OrderedtraZODone 100 mg oral tablet 100 mg, 1, tablet, By Mouth, Daily at bedtime, # 30 tablet, Refills 1, Tot. Refills 1, Maintenance, 01/21/22 12:47:00 EDT, Route to Pharmacy Electronically, [facility]/pharmacy #[id number], Partial fill upon patient request [...] Care Team PersonnelName: Robi Cardona MD Position: [facility] Primary Care Physician Member Role: PCP Address: Address: [address] [place] [address], [place] [address]- Care Team Related PersonsName: MAXIMILIANO CHRISTINE Address: home [address] [place] [address] Name: SUBHASH CASANOVA
[2022-08-23 16:26] LABS: Basophils Absolute Auto 0.1 X10*3/uL (0.0-0.2); Basophils Percent Auto 1.8 % (0-2); Eosinophils Absolute Auto 0.1 X10*3/uL (0.0-0.4); Hematocrit 34.3 % (37.0-47.0); Hemoglobin 12.1 g/dl (12.0-16.0); Imm Gran Abs Auto 0.02 X10*3/uL (0.00-0.03); Imm Gran Pct Auto 0.3 % (0.0-0.4); Lymphocytes Absolute Auto 2.3 X10*3/uL (1.2-4.9); Lymphocytes Percent Auto 31.7 % (20-40); Mean Corpuscular HGB Conc 35.3 g/dl (31.0-35.0); Mean Corpuscular Hemoglobin 33.2 pg (27.0-33.0); Monocytes Absolute Auto 0.4 X10*3/uL (0.1-1.2); Monocytes Percent Auto 4.9 % (2-11); Neutrophils Absolute Auto 4.3 x10*3/uL (2.0-8.3); Neutrophils Percent Auto 60.3 % (45-73); Platelet Count 277 X10*3/uL (160-400); Red Blood Count 3.65 X10*6/uL (4.20-5.50); Red Cell Distribution Width 22.4 % (11.0-16.0); White Blood Count 7.1 X10*3/uL (4.8-10.8)
[2022-08-23 16:49] LABS: COVID-19 Test Negative (Negative); IDNOW Serial# 08D9AD1C; IDNOW Serial# BCCEAD1C; Influenza A Negative (Negative); Influenza B2 Negative (Negative)
[2022-08-23 16:51] LABS: Alanine Aminotransferase 34 U/L (0-31); Albumin Level 4.1 g/dL (3.5-5.0); Alkaline Phosphatase 110 U/L (39-117); Anion Gap 21 (12-20); Aspartate Amino Transferase 67 U/L (5-31); Bilirubin Total 1.4 mg/dL (0.0-1.0); Blood Urea Nitrogen 22 mg/dL (9-16); Calcium 8.9 mg/dL (8.4-10.2); Carbon Dioxide 22 mmol/L (22-29); Chloride 104 mmol/L (96-108); Creatinine Clr Calc Pharmacy 69.4; Estimated Glomerular Filt Rate > 60; Ethanol 269 mg/dL; Glucose Random 107 mg/dL (60-115); Lipase 23 U/L (8-78); Magnesium 1.9 mg/dL (1.6-2.6); Potassium 3.5 mmol/L (3.3-5.1); Sodium 143 mmol/L (135-145); Total Protein 6.9 g/dL (6.5-8.0)
[2022-08-23] MEDS: LORazepam 1 MG TABLET 2 MG PO (17:07)
[2022-08-23] MEDS: LORazepam 2 MG/ML VIAL 1 MG IVPUSH (17:08)
[2022-08-23 17:37] LABS: INTERNATIONAL NORM RATIO 1.2 (0.9-1.1); Prothrombin Time 13.8 SEC (10.0-13.1)
[2022-08-23 17:40] LABS: Partial Thromboplastin Time 27.2 SEC (26.0-36.4)
[2022-08-23 17:45] LABS: Magnesium 1.8 mg/dL (1.6-2.6); Phosphorus 4.3 mg/dL (2.7-4.5)
[2022-08-23 17:47] LABS: Lactic Acid 3.2 mmol/L (0.5-2.0)
[2022-08-23 17:57] LABS: Troponin-I High Sensitivity < 3.5 ng/L (<3.5-17.0)
[2022-08-23 18:28] LABS: Acetone, serum QL Negative (Negative)
[2022-08-23 19:23] LABS: Reflex Lactate? Lactic Acid Added
[2022-08-23 20:32] VITALS: BP 129/89; PULSE 90; RESP 17; TEMP 36.4; O2SAT 96
[2022-08-23 20:33] LABS: Ethanol 222 mg/dL
[2022-08-23 20:50] LABS: ~Lactic Acid-LAB USE ONLY 3.5 mmol/L (0.5-2.0)
[2022-08-23] MEDS: Nicotine 21 MG PATCH.TD24 TRANSDERMA (21:05)
--- NOTE | 2022-08-23 21:49 | PC.NURSE ---
Assumed care of pt. at 1900. Pt. lying in bed at that time. Pt. then found up and out of bed looking for the bathroom with purse in hand. Pt. assisted to bathroom and purse placed back in room after outgoing RN found alcohol nips which were removed from pt. room. Pt. requesting to go smoke a cigarette. Pt. provided with nicotine patch per provider order. Pt. found attempting to go outside again and directed back to room. head men's golf coach is working on detox placement for pt.
--- NOTE | 2022-08-23 22:00 | MHC.RECOVSUP ---
? Reason for consult:ETOH o? Current location:ED13? o? Identified substance use concern:? -? Seeking ATS (detox) -? Support ? Intervention: o? ATS bed search started/completed/in process o? Community resources provided ? Plan: o? Follow up tomorrow? ? Additional information:[facility] faxed referral packet to [facility], and [facility], please follow up in the morning.
--- NOTE | 2022-08-23 22:08 | PC.NURSE ---
pt was found smoking in bathroom, verbal order to discharge pt via [facility]. Detox information provided to pt and pt was encouraged to follow up with detox
[2022-08-23 22:16] LABS: Reflex Lactate? 2 Y
== END 2022-08-23 22:08 | disposition left against medical advice (07) ==
PROVIDERS: Nurse Practitioner Family; Physician Assistant; Emergency Provider Internal Medicine; PCP Internal Medicine
DX: F10.129 Alcohol abuse with intoxication, unspecified (principal); Y90.8 Blood alcohol level of 240 mg/100 ml or more; E87.20 Acidosis, unspecified; R42 Dizziness and giddiness; Z20.822 Contact with and (suspected) exposure to COVID-19; Z20.828 Contact with and (suspected) exposure to other viral communicable diseases; Z79.899 Other long term (current) drug therapy
CPT/HCPCS: 36415; 71045; 80053; 82009; 82077; 83605; 83690; 83735; 84100; 84484; 85025; 85610; 85730; 87502; 87635; 93005; 96374; 99284; J2060

== ENCOUNTER 2022-08-24 12:28 | Emergency (ER) | payer OTHER, SELFPAY ==
[2022-08-24 12:31] VITALS: BP 143/85; PULSE 108; RESP 18; TEMP 36.8; O2SAT 96; BMI 18.3
--- NOTE | 2022-08-24 12:37 | ED.GENADULT ---
HPI - General Adult General Chief complaint: ETOH/Substance Use Stated complaint: alcohol withdrawal Time Seen by Provider: 08/24/22 19:31 Related Data Previous Rx's Medication Instructions Recorded trazodone 100 mg tablet 100 mg PO BEDTIME #30 tabs 06/11/20 dextroamphetamine-amphetamine 30 30 mg PO BID add 30 days #60 tabs 07/27/20 mg tablet (Adderall) Allergies Allergy/AdvReac Type Severity Reaction Status Date / Time No Known Allergies Allergy Verified 08/23/22 15:51 PMFSH Past Medical History Medical History ADD (attention deficit disorder) Anemia Migraine Surgical History No pertinent past surgical history Family History Family History Father Diabetes Stroke Mother Diabetes Cancer HTN (hypertension) Social History Social History Alcohol intake: current Alcohol intake frequency: a few times a month Cigarettes Per Day: 10 Advance Directives: No Advance Directives Information Provided: No Physical Exam ED Vital Signs: Vital Signs - 24 hr 08/24/22 12:31 Temperature 98.2 F Pulse Rate 108 H Respiratory Rate 18 Blood Pressure 143/85 H Pulse Oximetry 96 Oxygen Delivery Method Room Air BMI result Body Mass Index 18.3 Course Course Course Narrative: 51-year-old female with past medical history significant for alcohol abuse presents for evaluation of ?alcohol withdrawal. ? Patient was seen here last night and ultimately left against medical advice. She was found to be smoking and drinking in the bathroom. Patient does not appear to be in acute alcohol withdrawal. She reports drinking several lips this morning but is interested in detox. ? The patient had elevated lactate of 3.5 yesterday. Repeat labs and care team consult Medications Administered Discontinued Medications Generic Name Dose Route Start Last Admin Trade Name Freq PRN Reason Stop Dose Admin Loperamide HCl 2 mg 08/24/22 15:33 08/24/22 15:39 Loperamide Hcl 2 Mg Capsule PO 08/24/22 15:34 2 mg ONCE ONE Administration Medical Decision Making Lab Data 08/24/22 13:28 08/24/22 13:28 Labs: Lab Results 08/24/22 08/24/22 08/24/22 Range/Units 13:28 13:28 13:28 WBC 5.5 (4.8-10.8) X10*3/uL RBC 3.47 L (4.20-5.50) X10*6/uL Hgb 11.6 L (12.0-16.0) g/dl Hct 32.5 L (37.0-47.0) % MCV 93.7 (80.0-98.0) fL MCH 33.4 H (27.0-33.0) pg MCHC 35.7 H (31.0-35.0) g/dl RDW 22.5 H (11.0-16.0) % Plt Count 219 (160-400) X10*3/uL MPV 8.8 L (9.4-12.3) fL Immature Gran % (Auto) 0.2 (0.0-0.4) % Neut % (Auto) 65.0 (45-73) % Lymph % (Auto) 24.1 (20-40) % [place] % (Auto) 8.4 (2-11) % Eos % (Auto) 0.7 (0-4) % Baso % (Auto) 1.6 (0-2) % Lymph # (Auto) 1.3 (1.2-4.9) X10*3/uL [place] # (Auto) 0.5 (0.1-1.2) X10*3/uL Eos # (Auto) 0.0 (0.0-0.4) X10*3/uL Baso # (Auto) 0.1 (0.0-0.2) X10*3/uL Abs Immat Gran (auto) 0.01 (0.00-0.03) X10*3/uL Absolute Neuts (auto) 3.6 (2.0-8.3) x10*3/uL Absolute Nucleated RBC 0.000 (0.0-0.012) X10*3/uL Nucleated RBC % (auto) 0.0 (0.0-0.2) /100WBC Sodium 143 (135-145) mmol/L Potassium 3.2 L (3.3-5.1) mmol/L Chloride 104 (96-108) mmol/L Carbon Dioxide 25 (22-29) mmol/L Anion Gap 17 (12-20) BUN 21 H (9-16) mg/dL Creatinine 0.71 (0.5-1.4) mg/dL Estim Creat Clear Calc 72.9 Estimated GFR > 60 Random Glucose 85 (60-115) mg/dL Lactic Acid (0.5-2.0) mmol/L Calcium 8.8 (8.4-10.2) mg/dL Phosphorus 2.4 L (2.7-4.5) mg/dL Magnesium 1.9 (1.6-2.6) mg/dL Total Bilirubin 1.6 H (0.0-1.0) mg/dL AST 58 H (5-31) U/L ALT 32 H (0-31) U/L Alkaline Phosphatase 101 (39-117) U/L Total Protein 6.6 (6.5-8.0) g/dL Albumin 4.0 (3.5-5.0) g/dL Lipase 30 (8-78) U/L Ethyl Alcohol 151 mg/dL COVID-19 (PETE) Negative (Negative) COVID-19 Clin Com See Note 08/24/22 Range/Units 13:28 WBC (4.8-10.8) X10*3/uL RBC (4.20-5.50) X10*6/uL Hgb (12.0-16.0) g/dl Hct (37.0-47.0) % MCV (80.0-98.0) fL MCH (27.0-33.0) pg MCHC (31.0-35.0) g/dl RDW (11.0-16.0) % Plt Count (160-400) X10*3/uL MPV (9.4-12.3) fL Immature Gran % (Auto) (0.0-0.4) % Neut % (Auto) (45-73) % Lymph % (Auto) (20-40) % [place] % (Auto) (2-11) % Eos % (Auto) (0-4) % Baso % (Auto) (0-2) % Lymph # (Auto) (1.2-4.9) X10*3/uL [place] # (Auto) (0.1-1.2) X10*3/uL Eos # (Auto) (0.0-0.4) X10*3/uL Baso # (Auto) (0.0-0.2) X10*3/uL Abs Immat Gran (auto) (0.00-0.03) X10*3/uL Absolute Neuts (auto) (2.0-8.3) x10*3/uL Absolute Nucleated RBC (0.0-0.012) X10*3/uL Nucleated RBC % (auto) (0.0-0.2) /100WBC Sodium (135-145) mmol/L Potassium (3.3-5.1) mmol/L Chloride (96-108) mmol/L Carbon Dioxide (22-29) mmol/L Anion Gap (12-20) BUN (9-16) mg/dL Creatinine (0.5-1.4) mg/dL Estim Creat Clear Calc Estimated GFR Random Glucose (60-115) mg/dL Lactic Acid 4.2 H* (0.5-2.0) mmol/L Calcium (8.4-10.2) mg/dL Phosphorus (2.7-4.5) mg/dL Magnesium (1.6-2.6) mg/dL Total Bilirubin (0.0-1.0) mg/dL AST (5-31) U/L ALT (0-31) U/L Alkaline Phosphatase (39-117) U/L Total Protein (6.5-8.0) g/dL Albumin (3.5-5.0) g/dL Lipase (8-78) U/L Ethyl Alcohol mg/dL COVID-19 (PETE) (Negative) COVID-19 Clin Com Discharge Plan Discharge Clinical Impression: Alcoholism, Acidosis, lactic Patient Disposition: Left Against Medical Advice Instructions: Abuse of Alcohol (ED) Prescriptions: No Action trazodone 100 mg tablet 100 mg PO BEDTIME Qty: 30 3RF dextroamphetamine-amphetamine [Adderall] 30 mg tablet 30 mg PO BID 30 Days Qty: 60 0RF Rx Instructions: 1 tab in the am, .5 tab in afternoon Stand Alone Forms: Against Medical Advice Discharge Date/Time: 08/25/22 09:44
[2022-08-24 13:31] LABS: MANUAL DIFF FLAG NO
[2022-08-24 13:33] LABS: Basophils Absolute Auto 0.1 X10*3/uL (0.0-0.2); Basophils Percent Auto 1.6 % (0-2); Eosinophils Percent Auto 0.7 % (0-4); Hematocrit 32.5 % (37.0-47.0); Hemoglobin 11.6 g/dl (12.0-16.0); Imm Gran Abs Auto 0.01 X10*3/uL (0.00-0.03); Imm Gran Pct Auto 0.2 % (0.0-0.4); Lymphocytes Absolute Auto 1.3 X10*3/uL (1.2-4.9); Lymphocytes Percent Auto 24.1 % (20-40); Mean Corpuscular HGB Conc 35.7 g/dl (31.0-35.0); Mean Corpuscular Hemoglobin 33.4 pg (27.0-33.0); Mean Corpuscular Volume 93.7 fL (80.0-98.0); Mean Platelet Volume 8.8 fL (9.4-12.3); Monocytes Absolute Auto 0.5 X10*3/uL (0.1-1.2); Monocytes Percent Auto 8.4 % (2-11); Neutrophils Absolute Auto 3.6 x10*3/uL (2.0-8.3); Platelet Count 219 X10*3/uL (160-400); Red Blood Count 3.47 X10*6/uL (4.20-5.50); Red Cell Distribution Width 22.5 % (11.0-16.0); White Blood Count 5.5 X10*3/uL (4.8-10.8)
[2022-08-24 13:47] LABS: Lactic Acid 4.2 mmol/L (0.5-2.0)
[2022-08-24 13:50] LABS: Alanine Aminotransferase 32 U/L (0-31); Alkaline Phosphatase 101 U/L (39-117); Anion Gap 17 (12-20); Aspartate Amino Transferase 58 U/L (5-31); Bilirubin Total 1.6 mg/dL (0.0-1.0); Blood Urea Nitrogen 21 mg/dL (9-16); COVID-19 Test Negative (Negative); Calcium 8.8 mg/dL (8.4-10.2); Carbon Dioxide 25 mmol/L (22-29); Chloride 104 mmol/L (96-108); Creatinine Clr Calc Pharmacy 72.9; Estimated Glomerular Filt Rate > 60; Ethanol 151 mg/dL; Glucose Random 85 mg/dL (60-115); IDNOW Serial# 55D5AD1C; Lipase 30 U/L (8-78); Magnesium 1.9 mg/dL (1.6-2.6); Phosphorus 2.4 mg/dL (2.7-4.5); Potassium 3.2 mmol/L (3.3-5.1); Sodium 143 mmol/L (135-145); Total Protein 6.6 g/dL (6.5-8.0)
[2022-08-24 15:29] LABS: Reflex Lactate? Lactic Acid Added
[2022-08-24 15:30] VITALS: BP 151/95; PULSE 118; RESP 20; TEMP 36.4; O2SAT 96
[2022-08-24] MEDS: Loperamide HCl 2 MG CAPSULE PO (15:39)
--- NOTE | 2022-08-24 19:31 | ED_ITS ---
HPI - Alcohol General Chief Complaint: ETOH/Substance Use Stated Complaint: alcohol withdrawal Time Seen by Provider: 08/24/22 19:31 Source: patient Mode of arrival: ambulatory Limitations: no limitations History of Present Illness HPI narrative: 51-year-old female presents for alcohol detox. complaint: alcohol dependence and desires rehab Last drink: Just prior to admission Chronic alcohol use: Yes Previous visits for alcohol intoxication: Yes Recent trauma: No Associated symptoms: denies other symptoms Related Data Previous Rx's Medication Instructions Recorded trazodone 100 mg tablet 100 mg PO BEDTIME #30 tabs 06/11/20 dextroamphetamine-amphetamine 30 30 mg PO BID add 30 days #60 tabs 07/27/20 mg tablet (Adderall) Allergies Allergy/AdvReac Type Severity Reaction Status Date / Time No Known Allergies Allergy Verified 08/23/22 15:51 Review of Systems Review of Systems: Constitutional: No Fever, No Chills Psych: Positive alcohol abuse, No Anxiety, No Depression, No SI/HI/AH/VH Yes all other systems are reviewed and are negative [facility] Past Medical History Attestation statement: The following information was validated with the patient. Source: old records reviewed Medical History ADD (attention deficit disorder) Anemia Migraine Surgical History No pertinent past surgical history Family History Family History Father Diabetes Stroke Mother Diabetes Cancer HTN (hypertension) Social History Social History Alcohol intake: current Alcohol intake frequency: a few times a month Cigarettes Per Day: 10 Advance Directives: No Advance Directives Information Provided: No Physical Exam ED Vital Signs: Vital Signs - 24 hr 08/24/22 12:31 08/24/22 15:30 Temperature 98.2 F 97.6 F Pulse Rate 108 H 118 H Respiratory Rate 18 20 Blood Pressure 143/85 H 151/95 H Pulse Oximetry 96 96 Oxygen Delivery Method Room Air Room Air BMI result Body Mass Index 18.3 Appearance: Alert. Oriented X3. No acute distress. Eyes: Pupils equal, round and reactive to light. Neck: Normal inspection. Neck supple. CVS: Normal heart rate and rhythm. Skin: Skin warm and dry. Normal skin color. Extremities: Gait well-balanced well coordinated. Neuro: No motor deficit. No sensory deficit. Cranial nerves 2-12 intact Course Course Course Narrative: 51-year-old female presents for alcohol abuse and would like to detox. Patient is ambulatory with an even steady gait. Patient presented to this facility last night, and was discharged against medical advice. Patient was found to be drinking alcohol that she brought in with her in her purse, and was smoking in the bathroom which led to her discharged against medical advice. Upon presentation, I had asked the nurse to remove her belongings to prevent her from drinking alcohol on this premises. Patient became belligerent, stated that she was not going to give up her belongings, and would not let us look through her purse. Patient's labs were drawn in the emergency department waiting room, and has heart rate of 118 suspected to be from EtOH. Lactic acid is 4.2 consistent with EtOH acidosis. Patient does understand that drinking her own alcohol while in the emergency department is unacceptable. Patient discharged against medical advice from this facility. Medical Decision Making Differential Diagnosis Differential Diagnoses: The differential diagnosis associated with the presentation includes Alcohol abuse seeking detox Lab Data MDM Lab Attestation statement: I reviewed the patient's lab results. 08/24/22 13:28 08/24/22 13:28 Labs: Lab Results 08/24/22 08/24/22 08/24/22 Range/Units 13:28 13:28 13:28 WBC 5.5 (4.8-10.8) X10*3/uL RBC 3.47 L (4.20-5.50) X10*6/uL Hgb 11.6 L (12.0-16.0) g/dl Hct 32.5 L (37.0-47.0) % MCV 93.7 (80.0-98.0) fL MCH 33.4 H (27.0-33.0) pg MCHC 35.7 H (31.0-35.0) g/dl RDW 22.5 H (11.0-16.0) % Plt Count 219 (160-400) X10*3/uL MPV 8.8 L (9.4-12.3) fL Immature Gran % (Auto) 0.2 (0.0-0.4) % Neut % (Auto) 65.0 (45-73) % Lymph % (Auto) 24.1 (20-40) % Chase % (Auto) 8.4 (2-11) % Eos % (Auto) 0.7 (0-4) % Baso % (Auto) 1.6 (0-2) % Lymph # (Auto) 1.3 (1.2-4.9) X10*3/uL Chase # (Auto) 0.5 (0.1-1.2) X10*3/uL Eos # (Auto) 0.0 (0.0-0.4) X10*3/uL Baso # (Auto) 0.1 (0.0-0.2) X10*3/uL Abs Immat Gran (auto) 0.01 (0.00-0.03) X10*3/uL Absolute Neuts (auto) 3.6 (2.0-8.3) x10*3/uL Absolute Nucleated RBC 0.000 (0.0-0.012) X10*3/uL Nucleated RBC % (auto) 0.0 (0.0-0.2) /100WBC Sodium 143 (135-145) mmol/L Potassium 3.2 L (3.3-5.1) mmol/L Chloride 104 (96-108) mmol/L Carbon Dioxide 25 (22-29) mmol/L Anion Gap 17 (12-20) BUN 21 H (9-16) mg/dL Creatinine 0.71 (0.5-1.4) mg/dL Estim Creat Clear Calc 72.9 Estimated GFR > 60 Random Glucose 85 (60-115) mg/dL Lactic Acid (0.5-2.0) mmol/L Calcium 8.8 (8.4-10.2) mg/dL Phosphorus 2.4 L (2.7-4.5) mg/dL Magnesium 1.9 (1.6-2.6) mg/dL Total Bilirubin 1.6 H (0.0-1.0) mg/dL AST 58 H (5-31) U/L ALT 32 H (0-31) U/L Alkaline Phosphatase 101 (39-117) U/L Total Protein 6.6 (6.5-8.0) g/dL Albumin 4.0 (3.5-5.0) g/dL Lipase 30 (8-78) U/L Ethyl Alcohol 151 mg/dL COVID-19 (PETE) Negative (Negative) COVID-19 Clin Com See Note 08/24/22 Range/Units 13:28 WBC (4.8-10.8) X10*3/uL RBC (4.20-5.50) X10*6/uL Hgb (12.0-16.0) g/dl Hct (37.0-47.0) % MCV (80.0-98.0) fL MCH (27.0-33.0) pg MCHC (31.0-35.0) g/dl RDW (11.0-16.0) % Plt Count (160-400) X10*3/uL MPV (9.4-12.3) fL Immature Gran % (Auto) (0.0-0.4) % Neut % (Auto) (45-73) % Lymph % (Auto) (20-40) % Chase % (Auto) (2-11) % Eos % (Auto) (0-4) % Baso % (Auto) (0-2) % Lymph # (Auto) (1.2-4.9) X10*3/uL Chase # (Auto) (0.1-1.2) X10*3/uL Eos # (Auto) (0.0-0.4) X10*3/uL Baso # (Auto) (0.0-0.2) X10*3/uL Abs Immat Gran (auto) (0.00-0.03) X10*3/uL Absolute Neuts (auto) (2.0-8.3) x10*3/uL Absolute Nucleated RBC (0.0-0.012) X10*3/uL Nucleated RBC % (auto) (0.0-0.2) /100WBC Sodium (135-145) mmol/L Potassium (3.3-5.1) mmol/L Chloride (96-108) mmol/L Carbon Dioxide (22-29) mmol/L Anion Gap (12-20) BUN (9-16) mg/dL Creatinine (0.5-1.4) mg/dL Estim Creat Clear Calc Estimated GFR Random Glucose (60-115) mg/dL Lactic Acid 4.2 H* (0.5-2.0) mmol/L Calcium (8.4-10.2) mg/dL Phosphorus (2.7-4.5) mg/dL Magnesium (1.6-2.6) mg/dL Total Bilirubin (0.0-1.0) mg/dL AST (5-31) U/L ALT (0-31) U/L Alkaline Phosphatase (39-117) U/L Total Protein (6.5-8.0) g/dL Albumin (3.5-5.0) g/dL Lipase (8-78) U/L Ethyl Alcohol mg/dL COVID-19 (PETE) (Negative) COVID-19 Clin Com External Record Review External record reviewed: Outpatient record, Prior outpatient labs and Prior ou tpatient radiology Social Determinants Patient?s care significantly limited by Social Determinants of Health including: Other Social Determinant of Health Medications Administered Discontinued Medications Generic Name Dose Route Start Last Admin Trade Name Robb PRN Reason Stop Dose Admin Loperamide HCl 2 mg 08/24/22 15:33 08/24/22 15:39 Loperamide Hcl 2 Mg Capsule PO 08/24/22 15:34 2 mg ONCE ONE Administration Discharge Plan Discharge Clinical Impression: Alcoholism, Acidosis, lactic Patient Disposition: Left Against Medical Advice Instructions: Abuse of Alcohol (ED) Prescriptions: No Action trazodone 100 mg tablet 100 mg PO BEDTIME Qty: 30 3RF dextroamphetamine-amphetamine [Adderall] 30 mg tablet 30 mg PO BID 30 Days Qty: 60 0RF Rx Instructions: 1 tab in the am, .5 tab in afternoon Stand Alone Forms: Against Medical Advice
== END 2022-08-25 09:44 | disposition left against medical advice (07) ==
PROVIDERS: Physician Assistant; Emergency Provider Internal Medicine; PCP Internal Medicine
DX: F10.20 Alcohol dependence, uncomplicated (principal); Y90.6 Blood alcohol level of 120-199 mg/100 ml; E87.20 Acidosis, unspecified; Z20.822 Contact with and (suspected) exposure to COVID-19; Z79.899 Other long term (current) drug therapy
CPT/HCPCS: 36415; 80053; 82077; 83605; 83690; 83735; 84100; 85025; 87635; 99281; 99283

== ENCOUNTER 2023-08-08 18:35 | Emergency (ER) | payer OTHER, SELFPAY ==
[2023-08-08 18:39] VITALS: BP 136/85; PULSE 107; RESP 20; TEMP 37; O2SAT 98; BMI 27.5
--- NOTE | 2023-08-08 18:46 | ED_ITS ---
HPI - General Adult General Chief complaint: General Medical Stated complaint: Family req assistance w/halfway care Time Seen by Provider: 08/08/23 21:55 Source: patient and family Mode of arrival: EMS Limitations: no limitations History of Present Illness HPI narrative: Patient with history of CVA with right-sided hemiparesis lives with family who unable to take care of her patient is with expressive aphasia refusing care family wants her to go to long-term facility Related Data Home Medications Medication Instructions Recorded Confirmed aspirin 81 mg chewable tablet 1 tab PO DAILY 08/08/23 08/08/23 atorvastatin 20 mg tablet 20 mg PO BEDTIME 08/08/23 08/08/23 baclofen 10 mg tablet 10 mg PO TID 08/08/23 08/08/23 clonidine HCl 0.1 mg tablet 0.1 mg PO BID 08/08/23 08/08/23 clopidogrel 75 mg tablet 75 mg PO DAILY 08/08/23 08/08/23 folic acid 1 mg tablet 1 mg PO DAILY 08/08/23 08/08/23 hydroxyzine HCl 10 mg tablet 10 mg PO TID PRN anxiety 08/08/23 08/08/23 trazodone 50 mg tablet 100 mg PO BEDTIME 08/08/23 08/08/23 Allergies Allergy/AdvReac Type Severity Reaction Status Date / Time No Known Allergies Allergy Verified 08/08/23 18:46 Review of Systems 2 Review of Systems: Yes Unobtainable due to mental condition [facility] Past Medical History Medical History (Updated 08/09/23 @ 07:19 by Tito Cid MD) Aphasia History of ischemic left MCA stroke ADD (attention deficit disorder) Migraine Anemia Surgical History No pertinent past surgical history Family History Family History Father Diabetes Stroke Mother Diabetes Cancer HTN (hypertension) Social History Social History Unable to assess alcohol history related to: Unable to respond Alcohol intake: current Alcohol intake frequency: a few times a month Cigarettes Per Day: 10 Use of substances other than those prescribed or required for medical reasons: Unable to respond Advance Directives: No Advance Directives Information Provided: No Patient : No Physical Exam ED Vital Signs: Vital Signs - 24 hr 08/08/23 18:39 08/08/23 22:00 08/09/23 06:20 Temperature 98.6 F Pulse Rate 107 H 69 98 Respiratory Rate 20 18 12 Blood Pressure 136/85 138/82 135/79 Pulse Oximetry 98 98 96 Oxygen Delivery Method Room Air Room Air Room Air BMI result Body Mass Index 27.5 Appearance: Alert. Aphasic No acute distress. Eyes: PERRLA, No Nystagmus ENT: Pharynx normal. Oral Mucosa moist Neck: Normal inspection. Neck supple. CVS: Normal heart rate and rhythm. Pulses normal. Respiratory: No respiratory distress. Equal air entry bilateral, no wheezing/rales/rhonchi Abdomen: Soft and nontender. Bowel sounds are present, no mass palpable, no CVA tenderness Skin: Skin warm and dry. Normal skin color. Normal skin turgor. Extremities: No lower extremity edema. No calf tenderness Neuro: Alert and awake aphasia right dense hemiparesis Course Course Course Narrative: RME- 52-year-old female with past medical history significant for a stroke this past November presents for evaluation of family being unable to care for the patient. The patient has no use of her right arm but is able to stand up presents for evaluation of failure to thrive. The patient lives with her 2 sisters but has been refusing to add them as healthcare proxy so they can help coordinate her care. Her sister states that they are unable to care for her as she does not like them and are seeking help with long-term care. There have been no new symptoms. The patient has no complaints or concerns Medical Decision Making Medical Decision Making MDM Narrative: Patient with CVA with right-sided hemiparesis with aphasia unable to be managed at home refusing to go to long-term facility family unable to help her out will get case management psychiatrist evaluation about mental capacity and decision- making and plan to place and long-term facility. Patient is medically cleared Lab Data [facility] Lab Attestation statement: I reviewed the patient's lab results. 08/08/23 19:55 08/08/23 19:55 Labs: Lab Results 08/08/23 Range/Units 19:55 WBC 7.6 (4.8-10.8) X10*3/uL RBC 4.33 D (4.20-5.50) X10*6/uL Hgb 11.5 L (12.0-16.0) g/dl Hct 34.7 L (37.0-47.0) % MCV 80.1 (80.0-98.0) fL MCH 26.6 L (27.0-33.0) pg MCHC 33.1 (31.0-35.0) g/dl RDW 16.9 H (11.0-16.0) % Plt Count 375 D (160-400) X10*3/uL MPV 8.9 L (9.4-12.3) fL Immature Gran % (Auto) 0.3 (0.0-0.4) % Neut % (Auto) 53.4 (45-73) % Lymph % (Auto) 37.6 (20-40) % Desha % (Auto) 6.1 (2-11) % Eos % (Auto) 1.5 (0-4) % Baso % (Auto) 1.1 (0-2) % Lymph # (Auto) 2.8 (1.2-4.9) X10*3/uL Desha # (Auto) 0.5 (0.1-1.2) X10*3/uL Eos # (Auto) 0.1 (0.0-0.4) X10*3/uL Baso # (Auto) 0.1 (0.0-0.2) X10*3/uL Abs Immat Gran (auto) 0.02 (0.00-0.03) X10*3/uL Absolute Neuts (auto) 4.0 (2.0-8.3) x10*3/uL Absolute Nucleated RBC 0.000 (0.0-0.012) X10*3/uL Nucleated RBC % (auto) 0.0 (0.0-0.2) /100WBC Sodium 138 (135-145) mmol/L Potassium 3.5 (3.3-5.1) mmol/L Chloride 107 (96-108) mmol/L Carbon Dioxide 26 (22-29) mmol/L Anion Gap 9 L (12-20) BUN 20 H (9-16) mg/dL Creatinine 0.77 (0.5-1.4) mg/dL Estim Creat Clear Calc 85.5 Estimated GFR > 60 Random Glucose 107 (60-115) mg/dL Calcium 9.8 D (8.4-10.2) mg/dL Total Bilirubin 0.8 (0.0-1.0) mg/dL AST 12 (5-31) U/L ALT 8 (0-31) U/L Alkaline Phosphatase 114 (39-117) U/L Total Protein 7.6 (6.5-8.0) g/dL Albumin 4.4 (3.5-5.0) g/dL Lipase 26 (8-78) U/L Discharge Plan Discharge Clinical Impression: CVA, old, aphasia Patient Disposition: Still a Patient Prescriptions: No Action clonidine HCl 0.1 mg tablet 0.1 mg PO BID atorvastatin 20 mg tablet 20 mg PO BEDTIME trazodone 50 mg tablet 100 mg PO BEDTIME baclofen 10 mg tablet 10 mg PO TID aspirin 81 mg tablet,chewable 1 tab PO DAILY folic acid 1 mg tablet 1 mg PO DAILY hydroxyzine HCl 10 mg tablet 10 mg PO TID PRN (Reason: anxiety) clopidogrel 75 mg tablet 75 mg PO DAILY
[2023-08-08 20:03] LABS: MANUAL DIFF FLAG NO
[2023-08-08 20:05] LABS: Basophils Absolute Auto 0.1 X10*3/uL (0.0-0.2); Basophils Percent Auto 1.1 % (0-2); Eosinophils Absolute Auto 0.1 X10*3/uL (0.0-0.4); Eosinophils Percent Auto 1.5 % (0-4); Hematocrit 34.7 % (37.0-47.0); Hemoglobin 11.5 g/dl (12.0-16.0); Imm Gran Abs Auto 0.02 X10*3/uL (0.00-0.03); Imm Gran Pct Auto 0.3 % (0.0-0.4); Lymphocytes Absolute Auto 2.8 X10*3/uL (1.2-4.9); Lymphocytes Percent Auto 37.6 % (20-40); Mean Corpuscular HGB Conc 33.1 g/dl (31.0-35.0); Mean Corpuscular Hemoglobin 26.6 pg (27.0-33.0); Mean Corpuscular Volume 80.1 fL (80.0-98.0); Mean Platelet Volume 8.9 fL (9.4-12.3); Monocytes Absolute Auto 0.5 X10*3/uL (0.1-1.2); Monocytes Percent Auto 6.1 % (2-11); Neutrophils Percent Auto 53.4 % (45-73); Platelet Count 375 X10*3/uL (160-400); Red Blood Count 4.33 X10*6/uL (4.20-5.50); Red Cell Distribution Width 16.9 % (11.0-16.0); White Blood Count 7.6 X10*3/uL (4.8-10.8)
[2023-08-08 20:24] LABS: Alanine Aminotransferase 8 U/L (0-31); Albumin Level 4.4 g/dL (3.5-5.0); Alkaline Phosphatase 114 U/L (39-117); Anion Gap 9 (12-20); Aspartate Amino Transferase 12 U/L (5-31); Bilirubin Total 0.8 mg/dL (0.0-1.0); Blood Urea Nitrogen 20 mg/dL (9-16); Calcium 9.8 mg/dL (8.4-10.2); Carbon Dioxide 26 mmol/L (22-29); Chloride 107 mmol/L (96-108); Creatinine Clr Calc Pharmacy 85.5; Estimated Glomerular Filt Rate > 60; Glucose Random 107 mg/dL (60-115); Lipase 26 U/L (8-78); Potassium 3.5 mmol/L (3.3-5.1); Sodium 138 mmol/L (135-145); Total Protein 7.6 g/dL (6.5-8.0)
[2023-08-08 22:00] VITALS: BP 138/82; PULSE 69; RESP 18; O2SAT 98
--- NOTE | 2023-08-08 22:20 | PHA.MEDREC ---
Pharmacy Consult ? Medication Reconciliation Pharmacy has completed the medication reconciliation. Patient has old med list from November 2022. Patient unable to respond. RN has attempted to call family with no luck. Med rec completed by claim history Ilene Solomon, [employer]
--- NOTE | 2023-08-08 22:30 | PC.NURSE ---
On initial assessment of pt, pt only able to state yes or no , unclear if pt is comprehending statements and questions; however appears to have capacity to understand plan of care at this time. Pt with no physical complaints, VSS, endorsing baseline R sided deficits from previous stroke, and aphasic, baseline per pt post stroke. Relayed by CM from family that pt is incontinent of urine, pad placed under pt and pt brought near RN station for monitoring. No acute distress at this time. Pending orders from provider.
--- NOTE | 2023-08-08 23:45 | MHC.CM.ED ---
CM received consult from Juan Antonio ARTEAGA in the waiting room. Patient's sisters brought patient to ED for assistance with LTC placement as they can no longer care for her. Pt had a stroke in November of 2022. She has r hemiparesis. Can stand only. No use of right arm. Pt has aphasia. Sisters have been caring for her since her stroke. Pt has a hx of alcohol abuse and adderal abuse. Pt was at the PCP today to complete paperwork for admission to [facility]. Sisters had arranged LTC. At PCP, pt answered no when asked if she wanted to go to LTC. PCP told sister's the patient had right to refuse. Patient refused to have information shared with sisters at PCP office. Sisters can no longer care for her. They feel she is unsafe at their home, as she still tries to drink alcohol, and can be aggressive and needs total care. She is unable to care for herself. Sisters tell CM that her children cannot take her and only her daughter, Scooter ([phone]) helps to care for her. The sisters declined to leave their names or contact information with CM and left patient in the ED waiting room. Pt answers yes or no, with very limited speech. when questioned who would care for her, pt states Scooter . CM unsure if patient has capacity to understand her medical conditions and need for assistance with care. CM called and left a message with son, Kristofer Tabares ([phone]). CM spoke with daughter/HCP Scooter. Scooter tells CM that she is the HCP and has a copy with her. States she is still willing to be her mother's HCP, but she cannot take her to live with her, as she is living with her boyfriends family in the basement. She has been helping the aunts with daily care. She is unsure if her mother understands her medical needs and care needs. States they have been working with admission to [facility] in [place] for several months. States her mother was agreeable until they went to PCP today. Today she refused when asked if she would go to LTC by PCP. Scooter says they do not know what to do. States her mother's sister, Earlene may try to come to [facility] tomorrow and take her mother out. Scooter states her aunt does not have stable housing and couch surfs. She also gives her mother alcohol. Scooter requests that her mother not be discharged to her sister. Plan of Care: PT eval, Psych eval for capacity. CM to contact [facility] reqarding bed availability in the morning. PCP Dr. Cardona at [facility] in [place]. Will need to request last office visit in the morning. Primary RN and provider aware.
--- NOTE | 2023-08-09 02:08 | PC.NURSE ---
Note for planned CM Phys Obs stay - Pt is 52F coming from home for LTC placement. Pt with hx sig for stroke in November (RUE deficit, RLE weakness, and aphasia) and ETOH/adderal abuse. Care provided by family at home, incapable of continuing care. Initial plan by HCP was for placement at [facility], attended PCP appt this morning and refused placement last minute. Additional relative subjective in Case Management notes. Plan for Psych evaluation to determine capacity, with CM coordination with HCP for possible placement at [facility] or alternative. Alert to name, answering only yes/no to this RN, appears able to understand simple questions.
[2023-08-09 06:20] VITALS: BP 135/79; PULSE 98; RESP 12; O2SAT 96
[2023-08-09] MEDS: Baclofen 10 MG TABLET PO ×3 (11:02→21:33)
[2023-08-09] MEDS: Clopidogrel Bisulfate 75 MG TABLET PO (11:02)
[2023-08-09] MEDS: Aspirin 81 MG TAB.CHEW PO (11:02)
[2023-08-09] MEDS: Folic Acid 1 MG TABLET PO (11:02)
[2023-08-09] MEDS: cloNIDine HCL 0.1 MG TABLET PO ×2 (11:02→21:33)
[2023-08-09 11:11] VITALS: BP 133/84; PULSE 100; RESP 18; TEMP 36.3; O2SAT 98
--- NOTE | 2023-08-09 15:24 | MHC.CM.ED ---
Patient remains in ER overflow. Received telephone call from patient's daughter, Scooter. Explained psych consult for capacity is still pending. Explained CM will reach out to her once that is completed. Yuenilesalicia verbalized understanding. Continue to monitor for d/c needs.
[2023-08-09 16:58] LABS: COVID-19 Test Negative (Negative); IDNOW Serial# 08D9AD1C
--- NOTE | 2023-08-09 19:00 | PC.NURSE ---
Assumed care of patient at this time. Patient resting quietly in bed, no complaints at this time. Able to make most needs known with signaling, shaking/nodding head, however prominent aphasia present.
--- NOTE | 2023-08-09 19:16 | MHC.CM.ED ---
Pt insurance is [employer]. They do not pay for LTC. Referral made to [facility] financial services for assistance with transitioning insurance to MH standard. Daughter is HCP. Her contact information was given to Financial services. CM spoke with daughter, Scooter regarding insurance concerns, referral to Financial services, need for HCP at her convenience, psych consult for tomorrow and LTC referrals. Scooter aware that CM spoke with [facility] and that they do not have a female bed at this time. Also aware that her mother can have visitors if they would like to see her. Pt is a smoker and Scooter is requesting a nicotine patch for her, as she cannot articulate that she needs one. Scooter shared that when her mother tries to text her, she just hits random letters. CM spoke with Juliet Tena thread machine operator regarding this patient. Shared information from family and concerns about patient not having the capacity to make medical decisions. Juliet will see patient in the am. CM following for discharge planning.
[2023-08-09] MEDS: hydrOXYzine HCL 10 MG TABLET PO (21:33)
[2023-08-09] MEDS: traZODone HCL 100 MG TABLET PO (21:33)
[2023-08-09] MEDS: Nicotine 14 MG PATCH.TD24 TRANSDERMA (21:33)
[2023-08-09] MEDS: Atorvastatin Calcium 20 MG TABLET PO (21:33)
[2023-08-09 21:57] VITALS: BP 115/67; PULSE 65; RESP 16; TEMP 36.4; O2SAT 94
[2023-08-10 06:00] VITALS: BP 97/57; PULSE 75; RESP 18; TEMP 36.7; O2SAT 95
[2023-08-10] MEDS: Folic Acid 1 MG TABLET PO (09:51)
[2023-08-10] MEDS: Baclofen 10 MG TABLET PO ×3 (09:51→20:29)
[2023-08-10] MEDS: cloNIDine HCL 0.1 MG TABLET PO ×2 (09:51→20:29)
[2023-08-10] MEDS: Clopidogrel Bisulfate 75 MG TABLET PO (09:51)
[2023-08-10] MEDS: Aspirin 81 MG TAB.CHEW PO (09:52)
[2023-08-10 14:00] VITALS: BP 98/60; PULSE 70; RESP 17; TEMP 36.6; O2SAT 98
--- NOTE | 2023-08-10 14:16 | PC.NURSE ---
psychiatry in meeting with patient
--- NOTE | 2023-08-10 14:24 | P.CNPS_ITS ---
History of Present Illness Date of Service: 08/10/2023 Chief Complaint: Family req assistance w/termination clerk care Reason for Consult: capacity Discussed with referring provider: Yes Sources of Information: patient interviewed, chart reviewed and crisis/core team assessment reviewed HPI Narrative: Ms. Tabares is a 52 year-old woman with hx of CVA right side hemiparesis and expressive aphasia who was brought by family due to failure to thrive and family unable to meet her needs. Psychiatry asked to assess capacity as family reports significant cognitive impairments after CVA that occurred 11/2022. Pt seen in ED. Pt is calm, in bed. She is total care. Significant expressive aphasia, difficulty finding words and some visible frustration related to this. Pt able to respond with few simple words but unable to speak in complete sentences. She does seem upset when discussing that family feels they can't meet her needs and she needs higher level of care. Because of severe impairments s/s to CVA, she is not able to show understanding of medical decisions, nor verbalize a decisions. She is able to tell we are in August. Per family, pt at times refusing care without evident rationale. Limited insight into extend of supports she needs (she is total care) and fact that needs higher level of care. [facility] Medical History (Updated 08/10/23 @ 14:34 by Juliet Early) Aphasia History of ischemic left MCA stroke ADD (attention deficit disorder) Migraine Anemia Surgical History No pertinent past surgical history Diagnostics Vital Signs (24Hr): Vital Signs - 24 hr 08/09/23 21:57 08/10/23 06:00 08/10/23 14:00 Temperature 97.6 F 98.1 F 98 F Pulse Rate 65 75 70 Respiratory Rate 16 18 17 Blood Pressure 115/67 97/57 L 98/60 Pulse Oximetry 94 95 98 Oxygen Delivery Method Room Air Room Air Room Air BMI result Body Mass Index 27.5 Labs 08/08/23 19:55 08/08/23 19:55 Labs: Laboratory Results - last 48 hr 08/08/23 08/09/23 19:55 16:36 WBC 7.6 RBC 4.33 D Hgb 11.5 L Hct 34.7 L MCV 80.1 MCH 26.6 L MCHC 33.1 RDW 16.9 H Plt Count 375 D MPV 8.9 L Immature Gran % (Auto) 0.3 Neut % (Auto) 53.4 Lymph % (Auto) 37.6 [place] % (Auto) 6.1 Eos % (Auto) 1.5 Baso % (Auto) 1.1 Lymph # (Auto) 2.8 [place] # (Auto) 0.5 Eos # (Auto) 0.1 Baso # (Auto) 0.1 Abs Immat Gran (auto) 0.02 Absolute Neuts (auto) 4.0 Absolute Nucleated RBC 0.000 Nucleated RBC % (auto) 0.0 Sodium 138 Potassium 3.5 Chloride 107 Carbon Dioxide 26 Anion Gap 9 L BUN 20 H Creatinine 0.77 Estim Creat Clear Calc 85.5 Estimated GFR > 60 Random Glucose 107 Calcium 9.8 D Total Bilirubin 0.8 AST 12 ALT 8 Alkaline Phosphatase 114 Total Protein 7.6 Albumin 4.4 Lipase 26 COVID-19 (PETE) Negative COVID-19 Clin Com See Note Mental Status Exam Mental Status Exam Narrative: thin, wearing hospital gown, good hygiene, in NAD. Visible upset when not able to communicate. Upset with family for bringing her here with no insight into extend of cognitive and physical impairments secondary to CVA. No signs of psychosis or delusions. Alert, able to tell it is August but unable to tell situation, year, place. Medications Medications Current Medications Aspirin (Aspirin 81 Mg Tab.Chew) 81 mg PO DAILY [facility] Last Admin: 08/10/23 09:52 Dose: 81 mg Atorvastatin Calcium (Atorvastatin Calcium 20 Mg Tablet) 20 mg PO BEDTIME [facility] Last Admin: 08/09/23 21:33 Dose: 20 mg Baclofen (Baclofen 10 Mg Tablet) 10 mg PO TID [facility] Last Admin: 08/10/23 09:51 Dose: 10 mg Clonidine HCl (Clonidine Hcl 0.1 Mg Tablet) 0.1 mg PO BID [facility]; Protocol Last Admin: 08/10/23 09:51 Dose: 0.1 mg Clopidogrel Bisulfate (Clopidogrel Bisulfate 75 Mg Tablet) 75 mg PO DAILY [facility] Last Admin: 08/10/23 09:51 Dose: 75 mg Folic Acid (Folic Acid 1 Mg Tablet) 1 mg PO DAILY [facility] Last Admin: 08/10/23 09:51 Dose: 1 mg Hydroxyzine HCl (Hydroxyzine Hcl 10 Mg Tablet) 10 mg PO TID PRN PRN Reason: anxiety Last Admin: 08/09/23 21:33 Dose: 10 mg Trazodone HCl (Trazodone Hcl 100 Mg Tablet) 100 mg PO BEDTIME [facility] Last Admin: 08/09/23 21:33 Dose: 100 mg Allergies Allergies Allergy/AdvReac Type Severity Reaction Status Date / Time No Known Allergies Allergy Verified 08/08/23 18:46 Assessment & Plan Assessment & Plan (1) Major neurocognitive disorder due to traumatic brain injury: Status: Acute Code(s): S06.9XAS - Unspecified intracranial injury with loss of consciousness status unknown, sequela; F02.80 - Dementia in other diseases classified elsewhere, unspecified severity, without behavioral disturbance, psychotic disturbance, mood disturbance, and anxiety Assessment and Plan: s/s to CVA (2) CVA, old, aphasia: Status: Acute Code(s): I69.320 - Aphasia following cerebral infarction Plan Ms. Tabares is a 52 year-old woman who had CVA back in 11/2022 which left her with severe impairments including right sided hemiparesis, severe expressive aphasia, cognitive impairments in terms of her judgment and insight. Family reports pt declining care at times with no apparent rationale. Pt DOES NOT HAVE CAPACITY to make medical decisions, she is unable to show understanding, nor able to verbalize decisions. Recommend MD to invoke HCP. Total time managing care of this patient today ____ minutes.
--- NOTE | 2023-08-10 14:41 | MHC.CM.ED ---
Addendum entered by Thuy Padron 08/10/23 14:44: Scooter aware [facility] doesn't have a female bed at this time. Scooter also aware placement could potentially be anywhere in the state of [facility]. Scooter verbalized understanding. Original Note: Patient remains in ER overflow. Per Juliet, equipment engineering technician, patient does not have capacity to make her own decisions. Will wait for consult to be written. Patient's daughter, Scooter, made aware. Scooter will bring a copy of HCP to [facility] tomorrow, Monday. Referral made to [facility] at Tiana mcdonald's request. Continue to monitor for d/c needs.
[2023-08-10] MEDS: hydrOXYzine HCL 10 MG TABLET PO (20:29)
[2023-08-10] MEDS: traZODone HCL 100 MG TABLET PO (20:29)
[2023-08-10] MEDS: Atorvastatin Calcium 20 MG TABLET PO (20:29)
--- NOTE | 2023-08-10 20:37 | PC.NURSE ---
Assumed care of the pt around 1999. Pt is resting quietly in bed. When asked her birthday, pt struggled to answer then eventually answered 7 as the month of her after counting on her fingers. Pt medicated with PM medications. Pt is very quiet in bed. Pt had an episode of incontinence and was changed, given a new brief. Plan is for pt to go to intermediate care.
[2023-08-10 22:00] VITALS: RESP 14
[2023-08-11] VITALS (7 sets, daily range): BP systolic 85–107; BP diastolic 53–58; PULSE 50–68; RESP 12–18; TEMP 36–36.8; O2SAT 95–98
[2023-08-11] MEDS: Aspirin 81 MG TAB.CHEW PO (09:02)
[2023-08-11] MEDS: Baclofen 10 MG TABLET PO ×3 (09:02→20:52)
[2023-08-11] MEDS: Clopidogrel Bisulfate 75 MG TABLET PO (09:02)
[2023-08-11] MEDS: Folic Acid 1 MG TABLET PO (09:02)
[2023-08-11] MEDS: cloNIDine HCL 0.1 MG TABLET PO (09:02)
--- NOTE | 2023-08-11 10:00 | PC.NURSE ---
Assumed care at 0700. Pt has history of stroke with right sided deficits. Unable to move right arm with no sensation. Moving all other extremities. PERRLA. Denies any pain. Able to swallow pills whole with no difficulty. Tolerating regular diet. No nausea vomiting. Incontinent of urine, unable to get UA at this time ordered on 08/07. Able to make needs known. Expressive aphasia noted. Case management and social work involved, awaiting placement.
--- NOTE | 2023-08-11 15:52 | MHC.CM.ED ---
Patient remains in ER overflow. Spoke with patient's daughter, Scooter. Scooter will meet with [facility] financial counselors on Monday. She will bring a copy of HCP at that time. Continue to monitor for d/c needs.
[2023-08-11] MEDS: Atorvastatin Calcium 20 MG TABLET PO (20:52)
[2023-08-11] MEDS: traZODone HCL 100 MG TABLET PO (20:52)
--- NOTE | 2023-08-11 20:55 | ECG_ITS ---
Test Reason : hypotension Blood Pressure : / mmHG Vent. Rate : 053 BPM Atrial Rate : 053 BPM P-R Int : 182 ms QRS Dur : 086 ms QT Int : 440 ms P-R-T Axes : 053 046 036 degrees QTc Int : 412 ms Sinus bradycardia Low voltage QRS Septal infarct (cited on or before 23-AUG-2022) Abnormal ECG When compared with ECG of 23-AUG-2022 16:01, Vent. rate has decreased BY 54 BPM Minimal criteria for Inferior infarct are no longer Present Questionable change in initial forces of Anterior leads Referred By: Jarred Pizarro Electronically Signed By:Leo Ojeda
--- NOTE | 2023-08-11 21:45 | PC.NURSE ---
pt noted to be hypotensive at approx 1999. BP 85/53. pt is asymptomatic at this time. BP 88/58 when checked manually. provider notified. provider came to bedside to evaluate patient. orders for EKG and IVF. pt is refusing both. after talking to patient she was agreeable to EKG but still adamantly refusing to have IV placed and receiving IVF. provider is aware. states he will put the order in but not to force it on her. battery charger tester notified about pt status. pt to be moved back to the main ER.
--- NOTE | 2023-08-11 22:57 | PC.NURSE ---
Report rcvd from REID Thakkar, then transfered to REID Chinchilla
--- NOTE | 2023-08-11 23:13 | PC.NURSE ---
assumed care of pt, refused IVF at this time and blood work.
[2023-08-12 03:59] VITALS: BP 90/53; PULSE 50; RESP 16
[2023-08-12 05:13] VITALS: BP 107/59; PULSE 58; RESP 17; O2SAT 95
[2023-08-12] MEDS: cloNIDine HCL 0.1 MG TABLET PO ×2 (10:33→20:40)
[2023-08-12] MEDS: Aspirin 81 MG TAB.CHEW PO (10:33)
[2023-08-12] MEDS: Baclofen 10 MG TABLET PO ×3 (10:34→20:40)
[2023-08-12] MEDS: Folic Acid 1 MG TABLET PO (10:34)
[2023-08-12] MEDS: Clopidogrel Bisulfate 75 MG TABLET PO (10:34)
--- NOTE | 2023-08-12 11:03 | PC.NURSE ---
patient awake/alert to baseline, pt was incontinent of large amount of urine- brief changed, pt was cleaned and a full bed changed was performed for comfort. pt took all medications whole with water, pt given breakfast, vitals have been stable bed alarm intact, call bowles within reach, will continue to monitor
[2023-08-12 13:57] VITALS: BP 101/60; PULSE 54; RESP 16; TEMP 36.7; O2SAT 95
--- NOTE | 2023-08-12 15:56 | MHC.EDTECH ---
patient continues to refuse any blood work
--- NOTE | 2023-08-12 19:06 | PC.NURSE ---
Assumed care of pt. Pt lyingon stretcher, no acute distress. PT endorses being wet, plan to clean and change bedding. Planning for pm medications.
--- NOTE | 2023-08-12 20:21 | PC.NURSE ---
Changed pt bedding, informed pt of continuing plan of care. Planning for night time medication administration.
[2023-08-12] MEDS: Atorvastatin Calcium 20 MG TABLET PO (20:40)
[2023-08-12] MEDS: traZODone HCL 100 MG TABLET PO (20:40)
--- NOTE | 2023-08-13 01:30 | PC.NURSE ---
this rn assumed care of pt @ 2300. pt noted to be sleeping RR non labored rate of 14 lghts dimmed to promote rest
[2023-08-13 06:14] VITALS: BP 97/59; PULSE 57; RESP 16; TEMP 36.6; O2SAT 96
--- NOTE | 2023-08-13 07:42 | PC.NURSE ---
Resumed care of patient, breakfast set up for patient, at baseline mentation. Awaiting placement at this time
--- NOTE | 2023-08-13 09:37 | PC.NURSE ---
Assumed care at 0900. Pt resting comfortably.
[2023-08-13] MEDS: Aspirin 81 MG TAB.CHEW PO (09:52)
[2023-08-13] MEDS: Clopidogrel Bisulfate 75 MG TABLET PO (09:52)
[2023-08-13] MEDS: Baclofen 10 MG TABLET PO ×3 (09:52→21:15)
[2023-08-13] MEDS: Folic Acid 1 MG TABLET PO (09:52)
[2023-08-13 09:57] VITALS: BP 101/58; PULSE 48; RESP 12; O2SAT 97
--- NOTE | 2023-08-13 10:01 | PC.NURSE ---
Meds given as ordered and documented. Clonidine held b/p 101/58 HR 48. Repeat b/p 102/57 HR 59. I +O documented. Pt refused temperature.
[2023-08-13 10:05] VITALS: BP 102/57; PULSE 59
[2023-08-13 14:00] VITALS: BP 103/56; PULSE 56; RESP 13; TEMP 36.9; O2SAT 96
--- NOTE | 2023-08-13 15:27 | MHC.EDTECH ---
Patient care as patient brief was wet. Added a bed pad. Nurse assist on boosting patient up in bed. Patient comfortable and happy in bed.
--- NOTE | 2023-08-13 15:37 | MHC.EDTECH ---
Placed purewick on patient in order to collect a urine sample.
[2023-08-13 19:24] VITALS: BP 109/57; PULSE 54; RESP 12; O2SAT 97
--- NOTE | 2023-08-13 19:36 | PC.NURSE ---
pt ate dinner. nad. resp even and unlabored. pt reporting comfortable in bed. purewick not in place correctly. pt dry; purewick changed. call bowles within reach.
--- NOTE | 2023-08-13 21:03 | PC.NURSE ---
Per Simona STAGECRAFT TEACHER hold clonidine as pressures have been soft; last bp 109/57. pt denies dizziness at this time.
--- NOTE | 2023-08-13 21:03 | MHC.EDTECH ---
Pt was assisted with a complete bed bath with extensive assistance of 1. Pt is able to assist with personal care. Pt is using a Purewick which was changed/replaced. Pt was repositoned. Bedside table with shannone by bedside.
[2023-08-13] MEDS: traZODone HCL 100 MG TABLET PO (21:15)
[2023-08-13] MEDS: Atorvastatin Calcium 20 MG TABLET PO (21:15)
--- NOTE | 2023-08-13 23:23 | PC.NURSE ---
received report from Rebecca RN, assumed care of pt, pt resting in stretcher, eyes closed, no acute distress noted.
[2023-08-14 04:16] VITALS: BP 131/48; PULSE 65; RESP 16; O2SAT 98
--- NOTE | 2023-08-14 04:59 | PC.NURSE ---
pt resting in stretcher, eyes closed, respirations even and unlabored, no acute distress noted.
[2023-08-14 05:04] VITALS: BP 123/48; PULSE 55; RESP 16; TEMP 36.7; O2SAT 96
--- NOTE | 2023-08-14 05:30 | MHC.EDTECH ---
Pt's Purewick was replaced, pt received extensive assistance with personal hygiene. Pt participated in care by helping with rotating from side to side on stretcher.
[2023-08-14 08:01] VITALS: BP 118/63; PULSE 58; RESP 16; TEMP 36.6; O2SAT 92
--- NOTE | 2023-08-14 08:05 | PC.NURSE ---
Received report from Main ED. Pt is here for casework/placement. Pt arrived on unit alert, pt has expressive aphasia, and no use of R arm. Pt appears comfortable and w/o distress. Appropriate safety measures in place and ongoing monitoring
[2023-08-14] MEDS: Clopidogrel Bisulfate 75 MG TABLET PO (09:41)
[2023-08-14] MEDS: cloNIDine HCL 0.1 MG TABLET PO (09:41)
[2023-08-14] MEDS: Baclofen 10 MG TABLET PO ×3 (09:42→21:11)
[2023-08-14] MEDS: Folic Acid 1 MG TABLET PO (09:42)
[2023-08-14] MEDS: Aspirin 81 MG TAB.CHEW PO (09:42)
--- NOTE | 2023-08-14 11:32 | PC.NURSE ---
Attempted to obtain clean catch urine sample, during pt last void, but pt refused. Will continue to try
[2023-08-14 14:00] VITALS: BP 110/56; PULSE 95; RESP 17; TEMP 37; O2SAT 97
--- NOTE | 2023-08-14 19:26 | PC.NURSE ---
assumed care of pt at 1900. pt sleeping soundly in bed, rr even/unlabored. bed alarm on for pt safety. call bowles within reach. plan of care ongoing.
[2023-08-14 19:49] VITALS: BP 102/61; PULSE 94; TEMP 36.6; O2SAT 92
[2023-08-14 21:10] VITALS: BP 96/56; PULSE 54; RESP 16
[2023-08-14] MEDS: traZODone HCL 100 MG TABLET PO (21:10)
[2023-08-14] MEDS: Atorvastatin Calcium 20 MG TABLET PO (21:11)
--- NOTE | 2023-08-14 23:33 | PC.NURSE ---
pt transported from overflow unit to main, ED. pt resting in stretcher, no acute distress noted.
[2023-08-15 05:09] VITALS: BP 101/59; PULSE 74; RESP 14; TEMP 36.8; O2SAT 97
[2023-08-15 07:04] VITALS: BP 114/78; PULSE 85; RESP 17; TEMP 36.5; O2SAT 97
--- NOTE | 2023-08-15 07:04 | PC.NURSE ---
pt reports being wet. pt changed at this time. vss.
[2023-08-15 08:00] VITALS: BP 104/63; PULSE 74; RESP 18; TEMP 36.6; O2SAT 95
[2023-08-15] MEDS: Folic Acid 1 MG TABLET PO (08:13)
[2023-08-15] MEDS: cloNIDine HCL 0.1 MG TABLET PO ×2 (08:14→21:06)
[2023-08-15] MEDS: Baclofen 10 MG TABLET PO ×3 (08:14→21:06)
[2023-08-15] MEDS: Clopidogrel Bisulfate 75 MG TABLET PO (08:14)
[2023-08-15] MEDS: Aspirin 81 MG TAB.CHEW PO (08:14)
[2023-08-15 10:43] VITALS: BP 109/56; PULSE 61; RESP 16; TEMP 36.4; O2SAT 95
--- NOTE | 2023-08-15 10:49 | PC.NURSE ---
resting, calm. no resp distress. call bowles in reach. voided 100cc in purewick.
--- NOTE | 2023-08-15 11:15 | PC.NURSE ---
spoke w lab- pt had reportedly declined to give urine specimen for previous shifts. urine remains ordered. asking pt again if she consents for urine to be sent.
--- NOTE | 2023-08-15 11:40 | PC.NURSE ---
Addendum entered by Milly You 08/15/23 12:01: pt repositioned, new purewick in place, kerwin care by rn/cora Original Note: tabby hawkins aware unable to obtain urine- attempted but pt unable to void at this time in bedpan. pt declined offer for straight cath. tabby hawkins aware, no further orders.
--- NOTE | 2023-08-15 12:33 | MHC.CM.ED ---
Addendum entered by Thuy Padron 08/15/23 13:21: Referral broadcasted at this time to all facilities that accept [facility] within 25 miles of patient's residence. Original Note: Patient remains in ER. Patient's daughter Scooter and figleo-je-lge Sharda, met with Joy from [facility] financial counselors in order to transition patient's [facility] [place] [facility] to [facility]. Another family member, Arianna, works at [facility] in physical therapy. Arianna spoke with someone at [facility] that recommended patient's insurance be changed to [employer]. T/W spoke with Tiana, liaison for [facility]. [facility] is not contacted with [facility]. Sharda made aware and encouraged to change patient to [facility], specifically because patient will need intermediate accountant care and [facility] typically doesn't cover long term care. Sharda verbalized understanding. List of SNF in the area will be emailed to Sharda at her request. Both Scooter and Sharda have been made aware that there are 4 facilities that have closed locally and that LTC are not always available locally. Patient may have to be placed further away until a bed is available locally. Facility choices at this time are: 1) [facility] 2)[facility] 3) [facility]. Both are aware that none of these facilities have LTC beds available at this time. Copy of HCP obtained from Scooter. HCP invoked by Dr Alejandro. Continue to monitor for d/c needs.
[2023-08-15 12:59] VITALS: BP 102/69; PULSE 53; RESP 16; TEMP 36.6; O2SAT 95
[2023-08-15] MEDS: Nicotine 21 MG PATCH.TD24 TRANSDERMA ×2 (17:32→21:06)
--- NOTE | 2023-08-15 19:23 | PC.NURSE ---
Assumed care of pt. Pt lying on stretcher, on cell phone. No acute distress at this time. Continuing plan of care including preparation for night time medications.
[2023-08-15 19:36] VITALS: BP 98/63; PULSE 56; RESP 20; TEMP 36.5; O2SAT 98
[2023-08-15] MEDS: hydrOXYzine HCL 10 MG TABLET PO (21:06)
[2023-08-15] MEDS: Atorvastatin Calcium 20 MG TABLET PO (21:06)
[2023-08-15] MEDS: traZODone HCL 100 MG TABLET PO (21:06)
--- NOTE | 2023-08-16 03:06 | PC.NURSE ---
Resumed care of pt. Pt eyes closed, respirations even and unlabored, no acute distress. Continuing plan of care.
[2023-08-16 05:37] VITALS: BP 100/56; PULSE 56; RESP 16; TEMP 36.4; O2SAT 98
[2023-08-16] MEDS: Acetaminophen 325 MG TABLET 650 MG PO ×2 (05:49→15:44)
[2023-08-16] MEDS: Clopidogrel Bisulfate 75 MG TABLET PO (08:38)
[2023-08-16] MEDS: Baclofen 10 MG TABLET PO ×3 (08:38→21:24)
[2023-08-16] MEDS: Aspirin 81 MG TAB.CHEW PO (08:38)
[2023-08-16] MEDS: Folic Acid 1 MG TABLET PO (08:38)
[2023-08-16] MEDS: cloNIDine HCL 0.1 MG TABLET PO ×2 (08:38→21:24)
--- NOTE | 2023-08-16 08:45 | PC.NURSE ---
patient resting quietly in hospital bed, medicated per AUG, takes meds whole with water. patient ate 100% of breakfast tray. patint is awake and alert, responds yes or no to questions, able to gesture to what she wants/needs. skin dry and intact, respirations equal and unlabored.
--- NOTE | 2023-08-16 11:25 | MHC.CM.CNN ---
Addendum entered by Thuy Padron 08/16/23 13:20: Spoke with Scooter via telephone at [phone]. Scooter Hamilton has been asked to change patient's insurance to [employer]. Scooter agreeable. Addendum entered by Thuy Padron 08/16/23 13:15: Patient is clinically accepted at [facility]. Waiting for [facility] PASRR Level 2 and for insurance to be changed to [employer]. Original Note: Patient remains in ER overflow. Received notification from Tiana of [facility] that they are now requesting patient's [employer] be changed to [employer]. They will be able to complete a 1 time contract for patient. Joy, from [facility] financial counselor aware. Continue to monitor for d/c needs.
[2023-08-16 11:38] VITALS: BP 89/57; PULSE 64; RESP 20; TEMP 36.5; O2SAT 99
[2023-08-16 15:11] VITALS: BP 92/43; PULSE 52; RESP 16; TEMP 36.8; O2SAT 97
--- NOTE | 2023-08-16 15:58 | PC.NURSE ---
patient requested tylenol for headache, utilized prn medicated per aug. patient resting quietly, respirations equal and unlabored, VSS
[2023-08-16 19:47] VITALS: BP 99/54; PULSE 52; RESP 16; TEMP 36.9; O2SAT 96
[2023-08-16] MEDS: Atorvastatin Calcium 20 MG TABLET PO (21:24)
[2023-08-16] MEDS: traZODone HCL 100 MG TABLET PO (21:24)
[2023-08-17 05:59] VITALS: BP 101/57; PULSE 52; RESP 18; TEMP 36.6; O2SAT 95
--- NOTE | 2023-08-17 06:49 | PC.NURSE ---
Assumed care of patient at 23:15 on 08/15. Pt seen in ED overflow, awaiting PT/CM eval. Pt has PMHx of L MCA CVA with aphasia and residual right weakness. Pt alerts to voice and is able to answer assessment closed-ended Yes/No assessment questions appropriately. Pt was seen by psych on 08/09 per chart review and lacks capacity, with HCP invoked. Pt denies pain. Breathing is even and unlabored. Pt in no apparent distress. Purewick was placed for urinary incontinence. Q2h turning/repositioning for skin integrity provided. Bed alarm on and hourly rounding for safety. Handoff report given to oncoming RN at 06:45.???
--- NOTE | 2023-08-17 07:23 | PC.NURSE ---
Resumed care of patient, she is currently resting comfortably, call bowles within reach, safety measures in place. Awaiting placement at this time
[2023-08-17] MEDS: Clopidogrel Bisulfate 75 MG TABLET PO (08:14)
[2023-08-17] MEDS: Aspirin 81 MG TAB.CHEW PO (08:14)
[2023-08-17] MEDS: Folic Acid 1 MG TABLET PO (08:14)
[2023-08-17] MEDS: Baclofen 10 MG TABLET PO ×3 (08:14→21:41)
[2023-08-17] MEDS: cloNIDine HCL 0.1 MG TABLET PO ×2 (08:14→21:41)
--- NOTE | 2023-08-17 10:24 | MHC.CM.ED ---
Pt holding in the ED for placement: insurance to be changed by 08/17. ED CM to follow
[2023-08-17] MEDS: Nicotine 21 MG PATCH.TD24 TRANSDERMA (13:16)
[2023-08-17 13:47] VITALS: BP 110/60; PULSE 58; RESP 14; TEMP 36.2; O2SAT 94
--- NOTE | 2023-08-17 17:51 | MHC.EDTECH ---
pt ate 50% of her dinner, 240cc of fluids
--- NOTE | 2023-08-17 19:22 | PC.NURSE ---
Addendum entered by Mita Rushing RN 08/17/23 19:24: Call bowles within reach. Original Note: Assumed care of this pt at 19:00. PT currently laying in bed, a & o x 4, resp even and unlabored. Offers no complaints at this time. Plan of care ongoing.
--- NOTE | 2023-08-17 20:08 | MHC.EDTECH ---
pt was incontinent of urine. this tech changed pts brief and provided kerwin care.
[2023-08-17 21:40] VITALS: BP 102/55; PULSE 64; O2SAT 95
[2023-08-17] MEDS: traZODone HCL 100 MG TABLET PO (21:41)
[2023-08-17] MEDS: Atorvastatin Calcium 20 MG TABLET PO (21:41)
[2023-08-18 04:34] VITALS: BP 97/55; PULSE 50; RESP 17; TEMP 36.6; O2SAT 96
--- NOTE | 2023-08-18 05:51 | PC.NURSE ---
PT incontinent of urine. Shilpa care provided and purewick placed to minimize wetness and to maximize comfort as pt is incontinent at baseline and wears briefs. Skin appears to be intact.
[2023-08-18] MEDS: Folic Acid 1 MG TABLET PO (09:50)
[2023-08-18] MEDS: Clopidogrel Bisulfate 75 MG TABLET PO (09:50)
[2023-08-18] MEDS: Aspirin 81 MG TAB.CHEW PO (09:50)
[2023-08-18] MEDS: Baclofen 10 MG TABLET PO ×3 (09:50→21:45)
[2023-08-18] MEDS: cloNIDine HCL 0.1 MG TABLET PO (09:50)
--- NOTE | 2023-08-18 10:18 | PC.NURSE ---
Assumed care at 0700. Pt denies pain at this time, meds given as documented. Morning care done by ENVIRONMENTAL SERVICES ASSISTANT. Pt resting quietly at this time, no apparent distress. No change in plan of care, pt made aware.
--- NOTE | 2023-08-18 11:06 | MHC.CM.ED ---
Late entry from 08/15 at 1700: Received notification from [facility] of [facility] financial counselors that patient's insurance change to [employer] was requested on Monday08/14/23. Typically it takes 3-5 business days until insurance is changed. [facility] aware. Continue to monitor for d/c needs.
--- NOTE | 2023-08-18 11:07 | MHC.CM.ED ---
Patient remains in ER overflow. [facility] PASRR Level 2 obtained and forwarded to [facility]. Insurance is still listed as [employer] in [employer] virtual gateway. May need to wait until Monday for ins change. Continue to monitor for d/c needs.
[2023-08-18 13:58] VITALS: BP 100/59; PULSE 55; RESP 18; TEMP 36.3; O2SAT 98
--- NOTE | 2023-08-18 15:47 | MHC.EDTECH ---
PT INCONTINENT OF URINE. PUREWICK WAS NOT PLACED CORRECTLY. BEDDING CHANGED AND SCARLETT CARE DONE. NEW PUREWICK PLACED. RN AWARE
--- NOTE | 2023-08-18 17:17 | PC.NURSE ---
Incontinent care and Complete bed change done. Pt's friend came to visit her, pt out of bed to w/c during visit. Eating supper at this time.
[2023-08-18] MEDS: Acetaminophen 325 MG TABLET 650 MG PO (17:32)
--- NOTE | 2023-08-18 17:35 | PC.NURSE ---
Pt reports 5/10 headache, PRN Tylenol given, will reassess effectiveness.
[2023-08-18 21:10] VITALS: BP 87/55; PULSE 53; RESP 14; TEMP 36.3; O2SAT 98
[2023-08-18] MEDS: traZODone HCL 100 MG TABLET PO (21:45)
[2023-08-18] MEDS: Atorvastatin Calcium 20 MG TABLET PO (21:45)
[2023-08-19] MEDS: Acetaminophen 325 MG TABLET 975 MG PO (01:20)
[2023-08-19 05:45] VITALS: BP 117/64; PULSE 57; RESP 16; TEMP 36.7; O2SAT 97
--- NOTE | 2023-08-19 07:52 | PC.NURSE ---
Pt's BP at 0 was 87/55 and HR 53, manual by this RN 86/58. Pt awake, mentating at baseline, denies dizziness, lightheadedness or other s/s hypotension. Maryana Lee BAND LOG MILL AND CARRIAGE OPERATOR made aware. Clonodine held and recheck at 0115 122/58. During the night pt ate 3 chocolate bars and complained of pain in RLQ Dental pain. BAND LOG MILL AND CARRIAGE OPERATOR aware and APAP given as ordered as well as hot packs with pt stating relief and sleeping shortly after. Plan of care progressing.
[2023-08-19] MEDS: Aspirin 81 MG TAB.CHEW PO (09:48)
[2023-08-19] MEDS: Clopidogrel Bisulfate 75 MG TABLET PO (09:48)
[2023-08-19] MEDS: Baclofen 10 MG TABLET PO ×3 (09:48→19:59)
[2023-08-19] MEDS: Folic Acid 1 MG TABLET PO (09:48)
[2023-08-19] MEDS: Acetaminophen 325 MG TABLET 650 MG PO ×2 (09:52→20:00)
[2023-08-19 14:00] VITALS: BP 101/59; PULSE 62; RESP 16; TEMP 37.2; O2SAT 92
[2023-08-19] MEDS: oxyCODONE HCl Immed Release 5 MG TABLET PO (15:43)
[2023-08-19] MEDS: Atorvastatin Calcium 20 MG TABLET PO (19:59)
[2023-08-19] MEDS: traZODone HCL 100 MG TABLET PO (19:59)
--- NOTE | 2023-08-19 20:04 | MHC.EDTECH ---
Patient repositioned to right side
[2023-08-19 22:38] VITALS: BP 145/66; PULSE 81; RESP 18; TEMP 36.3; O2SAT 97
[2023-08-20] MEDS: Acetaminophen 325 MG TABLET 650 MG PO ×2 (03:15→08:29)
[2023-08-20 06:19] VITALS: BP 118/60; PULSE 64; RESP 64; TEMP 36.6; O2SAT 94
[2023-08-20] MEDS: Aspirin 81 MG TAB.CHEW PO (08:07)
[2023-08-20] MEDS: Clopidogrel Bisulfate 75 MG TABLET PO (08:07)
[2023-08-20] MEDS: Folic Acid 1 MG TABLET PO (08:07)
[2023-08-20] MEDS: Baclofen 10 MG TABLET PO ×3 (08:07→20:48)
--- NOTE | 2023-08-20 11:26 | PC.NURSE ---
assumed care of pt at 0700. pt awake and alert, able to communicate although aphasic. pt consumed breakfast and medicated with AM meds. tolerated well. pt reporting right lower jaw/tooth pain. Jenn ARTEAGA notified and aware. pt medicated with prn tylenol. now sleeping. no signs of distress noted. rr even/unlabored. call bowles within pt reach. plan of care ongoing.
--- NOTE | 2023-08-20 13:12 | MHC.CM.ED ---
Patient remains in ER overflow. [facility] PASRR Level 2 has been obtained and sent to [facility]. Tiana of [facility] was asking for financial disclosure to be completed by daughter/HCP, Scooter. T/W spoke with Scooter, via telephone at [phone]. Scooter aware patient's insurance has not converted to [employer] yet. Also aware [facility] is holding a bed for her patient until this happens. Financial disclosure explained and sent to Scooter via email. Continue to monitor for d/c needs.
[2023-08-20 14:00] VITALS: BP 133/60; PULSE 64; RESP 16; TEMP 36.6; O2SAT 96
[2023-08-20] MEDS: oxyCODONE HCl Immed Release 5 MG TABLET PO ×2 (14:59→18:52)
--- NOTE | 2023-08-20 15:06 | PC.NURSE ---
called pharmacy about pt's abx
--- NOTE | 2023-08-20 16:04 | PC.NURSE ---
pt medicated approx 1 hour ago with one time dose of oxycodone for right sided jaw pain. pt is currently sleeping peacefully. plan of care ongoing.
[2023-08-20] MEDS: Amoxicillin/Potassium Clav 875 MG TABLET PO ×2 (16:30→20:48)
--- NOTE | 2023-08-20 19:15 | PC.NURSE ---
pt medicated per mar for R sided dental pain. pt has swelling to area and appears to be in significant amount of pain. pending medication effectiveness. call bowles withn reach. plan of care ongoing.
[2023-08-20] MEDS: Atorvastatin Calcium 20 MG TABLET PO (20:48)
[2023-08-20] MEDS: traZODone HCL 100 MG TABLET PO (20:48)
[2023-08-20 21:57] VITALS: BP 120/72; PULSE 80; RESP 14; TEMP 37; O2SAT 96
[2023-08-21] MEDS: hydrOXYzine HCL 10 MG TABLET PO (01:22)
[2023-08-21 06:17] VITALS: BP 129/76; PULSE 89; RESP 16; TEMP 36.7; O2SAT 94
[2023-08-21] MEDS: Amoxicillin/Potassium Clav 875 MG TABLET PO ×2 (07:51→23:15)
[2023-08-21] MEDS: Aspirin 81 MG TAB.CHEW PO (07:51)
[2023-08-21] MEDS: Folic Acid 1 MG TABLET PO (07:51)
[2023-08-21] MEDS: Clopidogrel Bisulfate 75 MG TABLET PO (07:52)
[2023-08-21] MEDS: Baclofen 10 MG TABLET PO ×3 (07:52→23:15)
--- NOTE | 2023-08-21 08:07 | MHC.EDTECH ---
asked patient if she wanted to brush her teeth but she said no (mouth in pain) but is eating breakfast now
--- NOTE | 2023-08-21 08:12 | MHC.EDTECH ---
patient ate less than 25 of her breakfast due to her mouth hurting RN.
[2023-08-21] MEDS: Acetaminophen 325 MG TABLET 650 MG PO ×2 (08:41→15:45)
--- NOTE | 2023-08-21 09:30 | MHC.EDTECH ---
patient was offered to wash up and wanted it later due to her having pain in the mouth
--- NOTE | 2023-08-21 10:30 | PC.NURSE ---
Jenn had an okay morning. She remains alert, but unable to fully assess her level of orientation due to her aphasia. Pt did complain of jaw pain and requested pain meds. Pt ate about 50% of her meal preferring softer items. Pt rested in quietly in bed
--- NOTE | 2023-08-21 11:51 | MHC.EDTECH ---
patient wash washed by family and assisted with repositioning.
--- NOTE | 2023-08-21 12:16 | MHC.EDTECH ---
patient ate 75 percent lunch
[2023-08-21 13:57] VITALS: BP 120/79; PULSE 85; RESP 20; TEMP 36.9; O2SAT 97
--- NOTE | 2023-08-21 16:02 | PC.NURSE ---
resting in bed. no distress. given tylenol prn for r facial pain
--- NOTE | 2023-08-21 20:42 | PC.NURSE ---
calm, coop, resting, no distress.
[2023-08-21 21:14] VITALS: BP 121/75; PULSE 75; RESP 16; TEMP 37; O2SAT 95
[2023-08-21] MEDS: Atorvastatin Calcium 20 MG TABLET PO (23:15)
[2023-08-21] MEDS: traZODone HCL 100 MG TABLET PO (23:15)
[2023-08-22 04:15] VITALS: BP 132/79; PULSE 93; RESP 16; TEMP 36.1; O2SAT 96
[2023-08-22] MEDS: Aspirin 81 MG TAB.CHEW PO (07:54)
[2023-08-22] MEDS: Amoxicillin/Potassium Clav 875 MG TABLET PO ×2 (07:54→19:53)
[2023-08-22] MEDS: Baclofen 10 MG TABLET PO ×3 (07:55→19:53)
[2023-08-22] MEDS: Folic Acid 1 MG TABLET PO (07:55)
[2023-08-22] MEDS: Clopidogrel Bisulfate 75 MG TABLET PO (07:55)
[2023-08-22] MEDS: Nicotine 14 MG PATCH.TD24 TRANSDERMA (07:55)
[2023-08-22] MEDS: Acetaminophen 325 MG TABLET 650 MG PO ×2 (08:01→16:09)
--- NOTE | 2023-08-22 08:11 | PC.NURSE ---
ASSUMED CARE AT 0700. PT AWAKE AND EATING BREAKFAST. SHE REPORTS 10/10 TOOTH PAIN, PRN TYLENOL OFFERED AND ACCEPTED. ALL MEDS GIVEN DOCUMENTED. WILL REASSESS.
--- NOTE | 2023-08-22 08:30 | MHC.EDTECH ---
pt ate 25% of her breakfast and 120cc of fluids
--- NOTE | 2023-08-22 11:27 | MHC.CM.ED ---
Patient remains in ER overflow. Received notification from Tiana of [facility] that there isn't a female bed at this time due to having to separate 2 patients. Tiana will let T/W know when a bed is available. Patient's insurance hasn't converted to [employer] yet. Continue to monitor for d/c needs.
[2023-08-22 13:41] VITALS: BP 130/70; PULSE 89; RESP 16; TEMP 36.6; O2SAT 96
--- NOTE | 2023-08-22 14:02 | MHC.EDTECH ---
Pt assisted oob to bedside commode. Pt had small bm and was assisted back to bed. RN aware
[2023-08-22] MEDS: Ibuprofen 600 MG TABLET PO (16:09)
[2023-08-22 19:42] VITALS: BP 105/66; PULSE 76; RESP 15; TEMP 36.3; O2SAT 98
[2023-08-22] MEDS: Atorvastatin Calcium 20 MG TABLET PO (19:53)
[2023-08-22] MEDS: traZODone HCL 100 MG TABLET PO (19:53)
--- NOTE | 2023-08-22 23:45 | MHC.EDTECH ---
Provided kerwin care for patient. Brief changed.
--- NOTE | 2023-08-23 00:31 | PC.NURSE ---
Assumed care of this Pt at this time. Pt appears to be sleeping, equal, non labored respirations, no apparent distress. Plan of care on going.
[2023-08-23 03:16] VITALS: RESP 18
[2023-08-23 06:14] VITALS: BP 122/71; PULSE 75; RESP 16; TEMP 36.2; O2SAT 94
--- NOTE | 2023-08-23 08:05 | MHC.EDTECH ---
patient refused to brush teeth or do a mouth swabbed (mouth in pain) ate 25% breakfast
--- NOTE | 2023-08-23 08:26 | MHC.EDTECH ---
patient was assisted with wash up and complete bed change.
[2023-08-23] MEDS: Aspirin 81 MG TAB.CHEW PO (08:29)
[2023-08-23] MEDS: Amoxicillin/Potassium Clav 875 MG TABLET PO ×2 (08:29→21:23)
[2023-08-23] MEDS: Nicotine 14 MG PATCH.TD24 TRANSDERMA (08:30)
[2023-08-23] MEDS: Acetaminophen 325 MG TABLET 650 MG PO ×2 (08:30→21:31)
[2023-08-23] MEDS: Clopidogrel Bisulfate 75 MG TABLET PO (08:30)
[2023-08-23] MEDS: Baclofen 10 MG TABLET PO ×3 (08:30→21:23)
[2023-08-23] MEDS: Folic Acid 1 MG TABLET PO (08:30)
[2023-08-23 08:38] VITALS: BP 129/75; PULSE 73; RESP 16; TEMP 36.4; O2SAT 94
--- NOTE | 2023-08-23 08:39 | PC.NURSE ---
patient sat up and ate breakfast, respirations equal and unlabored, skin dry and intact, VSS, patient is alert and oriented, requested pain medication, utilized prn tylenol, patient medicated per mar
--- NOTE | 2023-08-23 12:15 | MHC.EDTECH ---
patient ate lunch 25%
--- NOTE | 2023-08-23 12:52 | MHC.CM.ED ---
Patient remains in ER overflow. Spoke with Joy of [facility] financial counseling. She has been in contact with [employer]. She is not sure why patient's insurance has not been chained to [facility] yet but has escalated the issue with [employer]. Continue to monitor for d/c needs.
[2023-08-23 14:00] VITALS: BP 112/71; PULSE 67; RESP 18; TEMP 36.8; O2SAT 96
--- NOTE | 2023-08-23 14:20 | MHC.EDTECH ---
patient was assisted to clean her bottom and make sure clean brief was on
--- NOTE | 2023-08-23 18:27 | MHC.EDTECH ---
patient ate 100 % of dinner ,drank 360 ml fluids .
[2023-08-23] MEDS: Atorvastatin Calcium 20 MG TABLET PO (21:22)
[2023-08-23] MEDS: traZODone HCL 100 MG TABLET PO (21:22)
--- NOTE | 2023-08-23 21:32 | PC.NURSE ---
pt brief changed and pt cleansed per request.
[2023-08-23 21:59] VITALS: BP 121/58; PULSE 62; RESP 16; TEMP 36.3; O2SAT 100
[2023-08-24 05:50] VITALS: BP 115/59; PULSE 72; RESP 16; TEMP 36.7; O2SAT 97
--- NOTE | 2023-08-24 05:50 | MHC.EDTECH ---
PATIENT REFUSED TO BE CHECK FOR INCONIENTANCE OR REPOSITION ,RN AWARE ,VITALS TAKEN .
[2023-08-24] MEDS: Nicotine 14 MG PATCH.TD24 TRANSDERMA (08:25)
[2023-08-24] MEDS: Amoxicillin/Potassium Clav 875 MG TABLET PO ×2 (08:25→20:08)
[2023-08-24] MEDS: Folic Acid 1 MG TABLET PO (08:25)
[2023-08-24] MEDS: Clopidogrel Bisulfate 75 MG TABLET PO (08:25)
[2023-08-24] MEDS: Baclofen 10 MG TABLET PO ×3 (08:26→20:08)
[2023-08-24] MEDS: Acetaminophen 325 MG TABLET 650 MG PO (08:26)
[2023-08-24] MEDS: Aspirin 81 MG TAB.CHEW PO (08:26)
--- NOTE | 2023-08-24 09:02 | MHC.CM.ED ---
Addendum entered by Thuy Padron 08/24/23 13:58: Clinical updates sent to [facility] as well. Original Note: Patient remains in ER overflow. Per [facility], insurance has been changed to [employer]. [facility] made aware. Waiting to hear if they have a bed available today. Continue to monitor for d/c needs.
--- NOTE | 2023-08-24 12:10 | PC.NURSE ---
Pt with aphasia but able to state yes/no and motion that she was having pain, prn tylenol given with +effect. Incontinent of urine, kerwin care provided. Awaiting LTC placement
[2023-08-24 14:00] VITALS: BP 127/68; PULSE 68; RESP 16; TEMP 36.6; O2SAT 95
[2023-08-24] MEDS: traZODone HCL 100 MG TABLET PO (20:08)
[2023-08-24] MEDS: Atorvastatin Calcium 20 MG TABLET PO (20:08)
--- NOTE | 2023-08-24 20:14 | PC.NURSE ---
this RN resumed care of pt at 1900. pt resting comfortably in bed in no apparent distress w/ the lights dimmed at this time. pt medicated per provider order. no sob/wob noted. respirations even and unlabored. plan of care ongoing. call bowles placed within reach.
[2023-08-24 20:31] VITALS: BP 122/70; PULSE 66; RESP 16; TEMP 36.8; O2SAT 95
[2023-08-25 05:55] VITALS: BP 130/58; PULSE 59; RESP 18; TEMP 36.7; O2SAT 95
--- NOTE | 2023-08-25 06:49 | PC.NURSE ---
Assumed care of patient at 23:30 (08/23). Pt seen in ED overflow as PT/CM pt, pending disposition/placement to LTC. 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 Pt alert and responds to name and looks at machine sign writer when spoken to. Answers closed-ended Yes/No questions. Q2h turning and repositioning provided as pt allows. VSS. Breathing is even and unlabored without distress on RA. No n/v. Pt denies pain and offers no acute complaints. Pt is incontinent and refuses to use purewick when offered. Incontinence care provided and bed changed this morning. Patient observed resting in bed in no apparent distress on hourly rounds. Bed alarm on and safety measures in place. Handoff report given to oncoming RN at 06:45.
[2023-08-25] MEDS: Folic Acid 1 MG TABLET PO (08:27)
[2023-08-25] MEDS: Aspirin 81 MG TAB.CHEW PO (08:27)
[2023-08-25] MEDS: Amoxicillin/Potassium Clav 875 MG TABLET PO ×2 (08:27→20:47)
[2023-08-25] MEDS: Baclofen 10 MG TABLET PO ×3 (08:28→20:47)
[2023-08-25] MEDS: Clopidogrel Bisulfate 75 MG TABLET PO (08:28)
[2023-08-25] MEDS: Nicotine 14 MG PATCH.TD24 TRANSDERMA (08:28)
--- NOTE | 2023-08-25 12:40 | PC.NURSE ---
pt's family members bedside for support.
[2023-08-25 14:00] VITALS: BP 115/58; PULSE 69; RESP 12; TEMP 36.7; O2SAT 97
--- NOTE | 2023-08-25 14:23 | PC.NURSE ---
pt medicated per provider order. pt stays resting in no apparent distress at this time. pt denies pain. has no acute complaints. no sob/wob noted. respirations remain even and unlabored. safety precautions in place. call bowles placed within reach.
--- NOTE | 2023-08-25 17:58 | PC.NURSE ---
pt incontinent of urine. incontinence care performed/fresh pads applied. new brief from home placed per pt request. pt continues to rest in no apparent distress at this time. per CM - search for LTC continues at this time. respirations remain even and unlabored. safety measures in place. call bowles placed within reach.
--- NOTE | 2023-08-25 19:30 | PC.NURSE ---
Assumed care of pt. Pt lying on stretcher, no acute distress at this time. Continuing plan of care.
[2023-08-25] MEDS: Acetaminophen 325 MG TABLET 650 MG PO (20:46)
[2023-08-25] MEDS: traZODone HCL 100 MG TABLET PO (20:47)
[2023-08-25] MEDS: Atorvastatin Calcium 20 MG TABLET PO (20:47)
[2023-08-25] MEDS: hydrOXYzine HCL 10 MG TABLET PO (20:47)
--- NOTE | 2023-08-25 20:55 | PC.NURSE ---
Pt took all medications without complications, no acute distress at this time.
[2023-08-25 23:06] VITALS: BP 125/70; PULSE 84; RESP 16; TEMP 36.5; O2SAT 94
[2023-08-26 06:31] VITALS: BP 122/78; PULSE 75; RESP 16; TEMP 36.4; O2SAT 97
[2023-08-26] MEDS: Nicotine 14 MG PATCH.TD24 TRANSDERMA (09:04)
[2023-08-26] MEDS: Aspirin 81 MG TAB.CHEW PO (09:04)
[2023-08-26] MEDS: Baclofen 10 MG TABLET PO ×3 (09:05→20:30)
[2023-08-26] MEDS: Amoxicillin/Potassium Clav 875 MG TABLET PO ×2 (09:05→20:30)
[2023-08-26] MEDS: Folic Acid 1 MG TABLET PO (09:05)
[2023-08-26] MEDS: Clopidogrel Bisulfate 75 MG TABLET PO (09:05)
--- NOTE | 2023-08-26 09:28 | PC.NURSE ---
Patient laying in bed comfortably at this time, patient reports no pain/needs at this time. all morning meds given at this time.
[2023-08-26 14:00] VITALS: BP 121/73; PULSE 80; RESP 20; TEMP 36.8; O2SAT 98
--- NOTE | 2023-08-26 15:08 | PC.NURSE ---
Patient alert laying in bed, denies any pain, reports no needs at this time.
--- NOTE | 2023-08-26 19:13 | PC.NURSE ---
assumed care of pt
[2023-08-26] MEDS: traZODone HCL 100 MG TABLET PO (20:30)
[2023-08-26] MEDS: Atorvastatin Calcium 20 MG TABLET PO (20:30)
[2023-08-26 20:38] VITALS: BP 136/74; PULSE 72; RESP 14; TEMP 36.6; O2SAT 95
--- NOTE | 2023-08-27 04:56 | PC.NURSE ---
Assumed care of patient . Patient slept throughout most of night.
[2023-08-27 05:51] VITALS: BP 115/67; PULSE 78; RESP 18; TEMP 36.1; O2SAT 93
[2023-08-27] MEDS: Nicotine 14 MG PATCH.TD24 TRANSDERMA (08:38)
[2023-08-27] MEDS: Aspirin 81 MG TAB.CHEW PO (08:38)
[2023-08-27] MEDS: Folic Acid 1 MG TABLET PO (08:39)
[2023-08-27] MEDS: Baclofen 10 MG TABLET PO ×3 (08:39→20:22)
[2023-08-27] MEDS: Clopidogrel Bisulfate 75 MG TABLET PO (08:39)
--- NOTE | 2023-08-27 10:43 | PC.NURSE ---
PT REFUSED BREAKFAST, DECLINED ALTERNATE MEAL OFFER. MEDS GIVEN DOCUMENTED. NO COMPLAINTS AT THIS TIME. WILL CONTINUE TO OBSERVE.
[2023-08-27 13:51] VITALS: BP 114/70; PULSE 83; RESP 16; TEMP 37; O2SAT 94
--- NOTE | 2023-08-27 17:19 | MHC.EDTECH ---
This pct assumed care of patient at 1500 ,patient is dry ,ate 100 % of meal drank 240 ml fluids .
[2023-08-27 19:26] VITALS: BP 117/70; PULSE 62; RESP 16; TEMP 36.8; O2SAT 97
[2023-08-27] MEDS: Atorvastatin Calcium 20 MG TABLET PO (20:22)
[2023-08-27] MEDS: traZODone HCL 100 MG TABLET PO (20:22)
[2023-08-28 05:50] VITALS: BP 120/66; PULSE 62; RESP 16; TEMP 36.8; O2SAT 94
[2023-08-28 07:39] VITALS: BP 120/60; PULSE 72; RESP 18; TEMP 36.5; O2SAT 96
[2023-08-28] MEDS: Nicotine 14 MG PATCH.TD24 TRANSDERMA (08:31)
[2023-08-28] MEDS: Baclofen 10 MG TABLET PO ×3 (08:32→20:36)
[2023-08-28] MEDS: Clopidogrel Bisulfate 75 MG TABLET PO (08:32)
[2023-08-28] MEDS: Aspirin 81 MG TAB.CHEW PO (08:32)
[2023-08-28] MEDS: Acetaminophen 325 MG TABLET 650 MG PO (08:37)
--- NOTE | 2023-08-28 08:43 | MHC.EDTECH ---
Pt ate 50% of her breakfast and 240cc of milk.
[2023-08-28] MEDS: Folic Acid 1 MG TABLET PO (08:45)
--- NOTE | 2023-08-28 08:46 | MHC.EDTECH ---
this tech gave the PT a full bed bath. Pt was incontinent of urine and also has her period. States that she is on day 4.
--- NOTE | 2023-08-28 13:32 | MHC.CM.ED ---
Patient remains in ER overflow. [facility] still does not have a female bed. Patient's daughter/HCP, Scooter, made aware via telephone. [facility] full. Clinical updates sent to [facility] at their request. Continue to monitor for d/c needs.
[2023-08-28 19:25] VITALS: BP 112/68; PULSE 64; RESP 18; TEMP 36.5
[2023-08-28] MEDS: traZODone HCL 100 MG TABLET PO (20:36)
[2023-08-28] MEDS: Atorvastatin Calcium 20 MG TABLET PO (20:36)
[2023-08-29 01:08] VITALS: BP 104/64; PULSE 74; RESP 16; TEMP 36.3; O2SAT 96
[2023-08-29 06:00] VITALS: BP 107/61; PULSE 96; RESP 18; TEMP 36.5; O2SAT 94
[2023-08-29] MEDS: Folic Acid 1 MG TABLET PO (08:13)
[2023-08-29] MEDS: Baclofen 10 MG TABLET PO ×3 (08:13→21:54)
[2023-08-29] MEDS: Aspirin 81 MG TAB.CHEW PO (08:13)
[2023-08-29] MEDS: Clopidogrel Bisulfate 75 MG TABLET PO (08:13)
[2023-08-29] MEDS: Nicotine 14 MG PATCH.TD24 TRANSDERMA (08:13)
[2023-08-29 14:00] VITALS: BP 106/55; PULSE 75; RESP 16; TEMP 36.6; O2SAT 98
--- NOTE | 2023-08-29 19:26 | PC.NURSE ---
This RN assumed pt care @ 1900. Pt ca&ox3, no sign of distress. Shilpa care completed, pt on menses. Plan of care ongoing.
[2023-08-29 21:42] VITALS: BP 137/59; PULSE 96; RESP 12; TEMP 36.6; O2SAT 94
[2023-08-29] MEDS: traZODone HCL 100 MG TABLET PO (21:54)
[2023-08-29] MEDS: Atorvastatin Calcium 20 MG TABLET PO (21:54)
--- NOTE | 2023-08-29 21:56 | PC.NURSE ---
Pt ca&ox3, no signs of distress. Pt medicated per mar. Plan of care ongoing.
[2023-08-30 08:05] VITALS: BP 110/66; PULSE 75; RESP 20; TEMP 36.9; O2SAT 96
[2023-08-30] MEDS: Folic Acid 1 MG TABLET PO (09:30)
[2023-08-30] MEDS: Clopidogrel Bisulfate 75 MG TABLET PO (09:30)
[2023-08-30] MEDS: Acetaminophen 325 MG TABLET 650 MG PO ×2 (09:30→15:45)
[2023-08-30] MEDS: Aspirin 81 MG TAB.CHEW PO (09:30)
[2023-08-30] MEDS: Baclofen 10 MG TABLET PO ×3 (09:30→22:16)
[2023-08-30] MEDS: Nicotine 14 MG PATCH.TD24 TRANSDERMA (09:31)
--- NOTE | 2023-08-30 10:21 | PC.NURSE ---
PT IS A/O X 2-3. NO SOB/DAVID NOTED SPEAKS IN FULL SENTENCES. NO EDEMA NOTED. PT C/O R JAW/DENTAL PAIN TO BE MED PER MAR. PT IS CALM/CO-OP. PT AWARE OF PLAN OF CARE. WILL CONTINUE TO MONITOR.
[2023-08-30 15:00] VITALS: BP 104/65; PULSE 67; RESP 20; TEMP 36.5; O2SAT 97
[2023-08-30 17:43] VITALS: BP 105/67; PULSE 65; RESP 18; TEMP 36.3; O2SAT 97
--- NOTE | 2023-08-30 21:45 | MHC.EDTECH ---
Pt chaanged and repositoned.
[2023-08-30 22:00] VITALS: BP 109/64; PULSE 65; RESP 16; TEMP 36.9; O2SAT 97
[2023-08-30] MEDS: Atorvastatin Calcium 20 MG TABLET PO (22:16)
[2023-08-30] MEDS: traZODone HCL 100 MG TABLET PO (22:17)
[2023-08-31 06:22] VITALS: BP 113/65; PULSE 68; RESP 16; TEMP 36.5; O2SAT 98
--- NOTE | 2023-08-31 09:30 | PC.NURSE ---
Patient currently laying in bed, reports no pain, reports no further needs at this time, will continue to monitor.
--- NOTE | 2023-08-31 09:59 | MHC.EDTECH ---
pt didn't want to eat breakfast 0% was washed up with complete bed change refused to brush teeth.
[2023-08-31] MEDS: Baclofen 10 MG TABLET PO ×3 (10:00→22:40)
[2023-08-31] MEDS: Clopidogrel Bisulfate 75 MG TABLET PO (10:00)
[2023-08-31] MEDS: Folic Acid 1 MG TABLET PO (10:00)
[2023-08-31] MEDS: Nicotine 14 MG PATCH.TD24 TRANSDERMA (10:00)
[2023-08-31] MEDS: Aspirin 81 MG TAB.CHEW PO (10:00)
--- NOTE | 2023-08-31 10:42 | MHC.EDTECH ---
pt was given a pitcher of water
--- NOTE | 2023-08-31 12:42 | MHC.EDTECH ---
pt ate 50% of her lunch
[2023-08-31 14:00] VITALS: BP 112/68; PULSE 98; RESP 20; TEMP 36.9; O2SAT 98
--- NOTE | 2023-08-31 14:35 | MHC.EDTECH ---
pt was clean and put on some clean briefs
[2023-08-31 22:00] VITALS: BP 101/57; PULSE 63; RESP 18; TEMP 37; O2SAT 95
[2023-08-31] MEDS: Atorvastatin Calcium 20 MG TABLET PO (22:40)
[2023-08-31] MEDS: hydrOXYzine HCL 10 MG TABLET PO (22:40)
[2023-08-31] MEDS: traZODone HCL 100 MG TABLET PO (22:40)
[2023-09-01 04:49] VITALS: BP 111/58; PULSE 73; RESP 16; TEMP 36.6; O2SAT 95
--- NOTE | 2023-09-01 08:14 | MHC.EDTECH ---
gave pt a pitcher of water
--- NOTE | 2023-09-01 10:32 | MHC.EDTECH ---
pt was washed up refused brush teeth with complete bed change
--- NOTE | 2023-09-01 10:40 | MHC.EDTECH ---
pt had less than 25% breakfast
[2023-09-01] MEDS: Aspirin 81 MG TAB.CHEW PO (10:51)
[2023-09-01] MEDS: Baclofen 10 MG TABLET PO ×3 (10:51→21:52)
[2023-09-01] MEDS: Clopidogrel Bisulfate 75 MG TABLET PO (10:51)
[2023-09-01] MEDS: Nicotine 14 MG PATCH.TD24 TRANSDERMA (10:51)
[2023-09-01] MEDS: Folic Acid 1 MG TABLET PO (10:51)
--- NOTE | 2023-09-01 12:34 | MHC.EDTECH ---
pt ate 50% of her lunch
[2023-09-01 12:50] VITALS: BP 111/58; PULSE 73; O2SAT 95
[2023-09-01 14:00] VITALS: BP 105/70; PULSE 79; RESP 20; TEMP 36.7; O2SAT 97
--- NOTE | 2023-09-01 15:19 | MHC.CM.ED ---
Patient remains in ER overflow. [facility] still does not have a bed available. [facility] might have a bed and has requested an additional PT eval. PT eval completed and sent to [facility]. Continue to monitor for d/c needs.
--- NOTE | 2023-09-01 18:25 | MHC.EDTECH ---
Patient was clean and change by frandy sevilla .
--- NOTE | 2023-09-01 19:03 | PC.NURSE ---
This RN assumed pt care @ 1900. Pts daughter at bedside. Plan of care ongoing.
[2023-09-01 19:58] VITALS: BP 93/57; PULSE 75; RESP 16; TEMP 36.6; O2SAT 97
--- NOTE | 2023-09-01 20:26 | MHC.CM.ED ---
CM reviewed records and noted that for the past 5 days, pt is either not eating her breakfast or eating 25-50%, and maybe 50% of lunch. Unsure if patient is tired of meals or maybe needs supplements. Discussed with Juan Antonio ARTEAGA. Will order nutritional consult.
--- NOTE | 2023-09-01 20:29 | MHC.CM.ED ---
Reviewed medical record over the past several days. Pt has been incontinent and has had her menses. Staff has provided pericare. No documentation skin breakdown.
[2023-09-01] MEDS: Atorvastatin Calcium 20 MG TABLET PO (21:52)
[2023-09-01] MEDS: traZODone HCL 100 MG TABLET PO (21:52)
--- NOTE | 2023-09-01 22:00 | PC.NURSE ---
pt moved from ED overflow to ED bed 15. pt medicated per mar with nighttime medications, brief changed - pt cleaned up and linens changed. needs met. pt offers no current complaints. call bowles within reach, plan of care ongoing
--- NOTE | 2023-09-01 22:36 | MHC.CM.ED ---
[facility] has offered a bed pending auth. Will have weekend CM call daughter on Monday. Scooter [phone] regarding bed offer. This is the only bed offer we have had, since [facility]. [facility] does would accept, but do not have a bed. May need to offer a HINN if daughter refuses. Daughter will need to sign her mother in at facility. Realistically will probably not transfer till Monday. Please call Nelida at [facility] at [phone] if daughter accepts bed.
--- NOTE | 2023-09-02 04:20 | PC.NURSE ---
this rn assumed care of pt, pt resting in stretcher, no acute distress noted. plan of care continues, call bowles within reach.
[2023-09-02 05:58] VITALS: BP 108/66; PULSE 69; RESP 16; O2SAT 96
[2023-09-02] MEDS: Aspirin 81 MG TAB.CHEW PO (09:35)
[2023-09-02] MEDS: Clopidogrel Bisulfate 75 MG TABLET PO (09:35)
[2023-09-02] MEDS: Folic Acid 1 MG TABLET PO (09:35)
[2023-09-02] MEDS: Baclofen 10 MG TABLET PO (09:35)
[2023-09-02] MEDS: Nicotine 14 MG PATCH.TD24 TRANSDERMA (09:37)
--- NOTE | 2023-09-02 09:43 | PC.NURSE ---
Assumed care of this patient at 0700, patient awoken at this time to give am meds, no issues noted, patient wants lights off/curtain closed at this time.
--- NOTE | 2023-09-02 13:30 | PC.NURSE ---
PT REFUSING ALL RXS FOR CONSTIPATION. STATES SHE HAS NOT HAD A BM IN 4 DAYS, ADVISED OF RISKS OF CONSTIPATION. PT CONTINUED TO REFUSE. DENIES PAIN AT THIS TIME.
[2023-09-02 13:32] LABS: COVID-19 Test Negative (Negative); IDNOW Serial# 9DB6401D
--- NOTE | 2023-09-02 14:33 | PC.NURSE ---
Addendum entered by Samina Leong RN 09/02/23 14:56: ABD SOFT, NONTENDER. Original Note: PT STATES SHE HAS NOT HAD A BM IN 4 DAYS.
--- NOTE | 2023-09-02 14:38 | MHC.CM.PN ---
Addendum entered by Simona Bhardwaj RN 09/02/23 15:57: Patient had BM. Scheduled to transfer to [facility] at 1600 via BLS Patient, daughter, RN, PA and facility aware. Original Note: [facility] has auth. CM reviewed bed offer with daughter, who accepted the bed. [facility] requesting rapid covid and documentation of last BM. Covid sent. Patient has not had BM in 4 days. Refusing PO meds. Denies abd pain. RN to attempt enema. CM will continue to follow.
--- NOTE | 2023-09-02 15:28 | PC.NURSE ---
Patient informed rehab accepted them pending a bowel movement. Patient initally rejected BM meds, then accepted, took all meds as ordered, had moderate BM in bedside commode. patient coordinator connie made aware. Patient to [facility] at 4pm
[2023-09-02 16:00] VITALS: BP 112/73; PULSE 80; RESP 16; TEMP 37.1; O2SAT 97
[2023-09-02 16:30] VITALS: BP 112/73; PULSE 80; RESP 16; TEMP 37.1; O2SAT 97
--- NOTE | 2023-09-02 16:30 | PC.NURSE ---
Nurse to Nurse phone report [facility], all questions answered.
== END 2023-09-02 16:15 | disposition skilled nursing facility (03) ==
PROVIDERS: Physician Assistant; Physician Assistant Medical; Emergency Provider Internal Medicine; PCP Internal Medicine
DX: I69.320 Aphasia following cerebral infarction (principal); I95.9 Hypotension, unspecified; F02.80 Dementia in other diseases classified elsewhere, unspecified severity, without behavioral disturbance, psychotic disturbance, mood disturbance, and anxiety; R00.1 Bradycardia, unspecified; R26.2 Difficulty in walking, not elsewhere classified; R51.9 Headache, unspecified; K12.1 Other forms of stomatitis; K08.89 Other specified disorders of teeth and supporting structures; Z11.52 Encounter for screening for COVID-19; Z79.899 Other long term (current) drug therapy
CPT/HCPCS: 36415; 80053; 83690; 85025; 87635; 93005; 97161; 99285

== ENCOUNTER → 2023-08-08 22:13 | Outpatient (BNV) | payer OTHER, SELFPAY | PROVIDERS: Emergency Provider Internal Medicine; PCP Internal Medicine; Visit Provider Social Worker | DX: F03.90 Unspecified dementia, unspecified severity, without behavioral disturbance, psychotic disturbance, mood disturbance, and anxiety (principal); I69.320 Aphasia following cerebral infarction | CPT/HCPCS: 99284 ==

== ENCOUNTER → 2023-08-11 20:55 | Outpatient (BNV) | payer OTHER, SELFPAY | PROVIDERS: Emergency Provider Internal Medicine; PCP Internal Medicine; Visit Provider Internal Medicine Cardiovascular Disease | DX: R00.1 Bradycardia, unspecified (principal) | CPT/HCPCS: 93010 ==